=== PATIENT | female | born 1980 | race Caucasian/White ===

== ENCOUNTER 2024-05-22 11:09 | Outpatient (OUT) | payer OTHER, SELFPAY ==
--- NOTE | 2024-05-22 11:18 | MM_ITS ---
Patient Name: RONNY WILLARD MR#: [id number] : 1980 Exam Date: 05/22/2024 Ordering Doctor: MADALYN FARNSWORTH . RADIOLOGY REPORT PROCEDURE: MM TOMOSYNTHESIS SCREENING BI COMPARISON: None. INDICATIONS: Screening Calculator Name NCI Breast Cancer Risk Assessment Tool 5 Year Breast Cancer Risk 0.80% Lifetime Breast Cancer Risk 12.40% Personal Breast Cancer No Personal Ovarian Cancer No Treatments None Family Cancers None LOCATION: [facility] BREAST COMPOSITION: The breasts are extremely dense, which lowers the sensitivity of mammography. FINDINGS: DIAGNOSTIC CATEGORY 2--BENIGN FINDING: Scattered benign-appearing nodules are present. Scattered benign-appearing calcifications are present. Scattered benign-appearing lymph nodes are present. RIGHT BREAST: No significant suspicious finding. LEFT BREAST: No significant suspicious finding. RECOMMENDATIONS: ROUTINE MAMMOGRAM AND CLINICAL EVALUATION IN 12 MONTHS. PLEASE NOTE: A NORMAL MAMMOGRAM DOES NOT EXCLUDE THE POSSIBILITY OF BREAST CANCER. A CLINICALLY SUSPICIOUS PALPABLE LUMP SHOULD BE BIOPSIED. Dictated by: Dick Goyal MD on 05/22/2024 at 13:16 Approved by: Dick Goyal MD on 05/22/2024 at 13:17
== END 2024-05-22 11:10 | disposition home or self-care (01) ==
LOC: MAMMO 11:14
PROVIDERS: PCP Nurse Practitioner; Visit Provider Nurse Practitioner
DX: Z12.31 Encounter for screening mammogram for malignant neoplasm of breast (principal)
CPT/HCPCS: 77063; 77067

== ENCOUNTER 2025-05-28 13:14 | Outpatient (OUT) | payer OTHER, SELFPAY ==
--- NOTE | 2025-05-28 13:19 | MM_ITS ---
Patient Name: RONNY WILLARD MR#: [id number] : 1980 Exam Date: 05/28/2025 Ordering Doctor: MADALYN FARNSWORTH . RADIOLOGY REPORT PROCEDURE: MM TOMOSYNTHESIS SCREENING BI COMPARISON: MM TOMOSYNTHESIS SCREENING BI, 05/22/2024. INDICATIONS: Screening Calculator Name NCI Breast Cancer Risk Assessment Tool 5 Year Breast Cancer Risk 0.80% Lifetime Breast Cancer Risk 12.20% Personal Breast Cancer No Personal Ovarian Cancer No Treatments None Family Cancers None LOCATION: [facility] BREAST COMPOSITION: The breasts are extremely dense, which lowers the sensitivity of mammography. FINDINGS: RIGHT BREAST: No significant suspicious finding. There is a similar focal asymmetry. LEFT BREAST: No significant suspicious finding. There is a similar focal asymmetry. DIAGNOSTIC CATEGORY 2--BENIGN FINDING. NO CHANGE FROM COMPARISON. RECOMMENDATIONS: ROUTINE MAMMOGRAM AND CLINICAL EVALUATION IN 12 MONTHS. Dictated by: Fco Conrad MD on 05/28/2025 at 15:33 Approved by: Fco Conrad MD on 05/28/2025 at 15:37
--- OUTSIDE RECORDS SUMMARY | 2025-05-28 13:20 | XMS_ITS | CCD ---
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 Role Phone MICHELE CHURCH Primary Care Physician Blayne, Shae L Admitting Unavailable Blayne, Shae L Attending Unavailable RANJIT, MICHELE A Attending Unavailable RANJIT, MICHELE A Admitting Unavailable RANJIT, MICHELE A Attending Unavailable Blayne, HUMAN RESOURCES OPERATIONS DIRECTOR Shae L Attending Unavailable RANJIT, MICHELE A Attending Unavailable RANJIT, MICHELE A Attending Unavailable RANJIT, MICHELE A Admitting Unavailable RANJIT, MICHELE A Attending Unavailable RANJIT, MICHELE A Attending Unavailable RANJIT, MICHELE A Attending Unavailable RANJIT, MICHELE A Admitting Unavailable RANJIT, MICHELE A Attending Unavailable RANJIT, MICHELE A Attending Unavailable RANJIT, MICHELE A Admitting Unavailable RANJIT, MICHELE A Attending Unavailable RANJIT, MICHELE A Admitting Unavailable RANJIT, MICHELE A Attending Unavailable RANJIT, MICHELE A Attending Unavailable RANJIT, MICHELE A Attending Unavailable RANJIT, MICHELE A Attending Unavailable RANJIT, MICHELE A Attending Unavailable RANJIT, MICHELE A Admitting Unavailable RANJIT, MICHELE A Referring Unavailable RANJIT, MICHELE A Attending Unavailable Allergies Allergy Classification Reported Allergen(s) Allergy Type Date of Onset Reaction(s) Facility (4 sources) No Known Medication Allergies; Translations: [No Known Medication Allergies] Propensity to adverse reactions (disorder) [facility] Repository Medications Current Medications Medication Drug Class(es) Dates Sig (Normalized) Sig (Original) Aquaphor Healing topical ointment (2 sources) Start: 05-06-2024 Aquaphor Healing topical ointment See Instructions, 396 gm, Refill(s) 0, Apply to dry areas of the hands, elbows, and knees, [facility], 166, cm, 05/06/24 10:31:00 EDT, Height/Length Dosing, 65, kg, 05/06/24 10:31:00 EDT, Weight Dosing Start Date: 05/06/24 Status: Ordered Problems Problem Classification Problem Date Documented Da te Episodic/Chronic Headache; including migraine (2 sources) 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 Unclassified (4 sources) Body mass index 20-24 - normal 05-06-2024 Unclassified (3 sources) Cancer cervix screening status 05-20-2024 Unclassified (4 sources) Non-smoker 05-06-2024 Unclassified (6 sources) Patient encounter status 05-20-2024 Results Test Name Value Interpretation Reference Range Facility Chlamydia/Gonococcus, NAAon 03-19-2025 Chlamydia trach, YOVANI Negative Invalid Interpretation Code Negative [facility] Comment on above: Performed By: #### 1 [id number] #### [facility] [address] [place] [address] Neisseria jonathan, YOVANI Negative Invalid Interpretation Code Negative [facility] Comment on above: Result Comment: Perf ormed at: =G [facility] [address] [id number] MD Juan M Watkins Performed By: #### 1 [id number] #### [facility] [address] [place] [address] FSH and LHon 03-19-2025 FSH 8.2 mIU/mL Invalid Interpretation Code [facility] Comment on above: Result Comment: Adul t Female Range Follicular phase 3.5 - 12.5 Ovulation phase 4.7 - 21.5 Luteal phase 1.7 - 7.7 Postmenopausal 25.8 - 134.8 Performed at: [facility] [address] [id number] PhD Frank Pitt Performed By: #### 1 [id number] #### [facility] [address] [place] [address] LH 25.0 mIU/mL Invalid Interpretation Code [facility] Comment on above: Result Comment: Adul t Female Range Follicular phase 2.4 - 12.6 Ovulation phase 14.0 - 95.6 Luteal phase 1.0 - 11.4 Postmenopausal 7.7 - 58.5 Performed By: #### 1 [id number] #### [facility] [address] [place] [address] Glu Fastingon 03-17-2025 Glucose [Mass/Vol] 96 mg/dL Normal 55-99 [facility] Comment on above: Performed By: #### 2 [id number] #### [facility] [address] [place] [address] Lipid Panelon 03-17-2025 Cholesterol [Mass/Vol] 193 mg/dL Normal 120-200 [facility] Comment on above: Performed By: #### 2 [id number] #### [facility] [address] [place] [address] Cholesterol in HDL [Mass/Vol] 58 mg/dL Invalid Interpretation Code [facility] Comment on above: Result Comment: '>= 60 LOW RISK' '<= 40 HIGH RISK' Performed By: #### 2 [id number] #### [facility] [address] [place] [address] Cholesterol in LDL [Mass/Vol] 124 mg/dL Normal <=129 [facility] Comment on above: Performed By: #### 2 [id number] #### [facility] [address] [place] [address] Cholesterol in VLDL [Mass/Vol] 24 mg/dL Normal 7-40 [facility] Comment on above: Performed By: #### 2 [id number] #### [facility] [address] [place] [address] Triglyceride [Mass/Vol] 119 mg/dL Normal <=149 [facility] Comment on above: Performed By: #### 2 [id number] #### [facility] [address] [place] [address] Ambulatory Visit Summaryon 0 03-13-2025 Ambulatory Visit Summary Ambulatory Visit Summary ELI WILLARD :1980 Visit Date:03/13/2025 Ambulatory Visit Instructions Your Diagnosis Well woman exam Breast cancer screening by mammogram BMI 22.0-22.9, adult Former smoker Your Care Team Attending Physician - MICHELE CHURCH CNP Primary Care Physician - MICHELE CHURCH CNP Discharge Vitals Temperature (Oral) 36.8 ???C Heart Rate (Peripheral) 94 Respiratory Rate 18 Blood Pressure 114/76 Height 166 cm Height 65 in Weight 62.1 kg Weight 136.907 lb BMI 22.54 What to do next Scheduled Follow-Up Appointments Monday 9:20 AM EDT Where: [facility] [address] [place] [phone]- You Need to Schedule the Following Appointments Follow Up with MICHELE CHURCH CNP, FAM When: Within 1 year Comments: Well visit Where: [address] [place] [phone] Business (1) You Need to Complete the Following Chlamydia/Gonococcus , YOVANI, Urine, Routine collect, 03/13/25, Order for future visit, Nurse collect, Well woman exam Breast cancer screening by mammogram BMI 22.0-22.9, adult Former smoker, Print Label By Order Location FSH and LH, Blood, Routine collect, 03/13/25, Order for future visit, Lab Collect, Well woman exam, Print Label By Order Location Glucose Fasting, Blood, Routine collect, 03/13/25, Order for future visit, Lab Collect, Well woman exam, Print Label By Order Location Lipid Panel, Blood, Routine collect, 03/13/25, Order for future visit, Lab Collect, Well woman exam, Print Label By Order Location MA Mamm Screen w/CAD if perf and 3D Zcakary, 03/13/25, Routine, Order for Future Visit, Transport Mode: Ambulatory, Reason: Screening, No, Well woman exam Breast cancer screening by mammogram, pp_set_radiology_sub specialty, [facility] Allergies No Known Allergies No Known Medication Allergies Problems Ongoing - Any problem that you are currently receiving treatment for. BMI 22.0-22.9, adult Breast cancer screening by mammogram Cervical cancer screening Former smoker Ocular migraine Well woman exam Patient Survey You may receive a survey via text or e-mail asking about your office visit. Please share your experience with us by completing your survey. We appreciate your feedback and thank you for choosing us for your care. Education Materials Health Maintenance, Female Adopting a healthy lifestyle and getting preventive care are important in promoting health and wellness. Ask your health care provider about: ??? The right schedule for you to have regular tests and exams. ??? Things you can do on your own to prevent diseases and keep yourself healthy. What should I know about diet, weight, and exercise? Eat a healthy diet ??? Eat a diet that includes plenty of vegetables, fruits, low-fat dairy products, and lean protein. ??? Do not eat a lot of foods that are high in solid fats, added sugars, or sodium. Maintain a healthy weight Body mass index (BMI) is used to identify weight problems. It estimates body fat based on height and weight. Your health care provider can help determine your BMI and help you achieve or maintain a healthy weight. Get regular exercise Get regular exercise. This is one of the most important things you can do for your health. Most adults should: ??? Exercise for at least 150 minutes each week. The exercise should increase your heart rate and make you sweat (moderate-intensity exercise). ??? Do strengthening exercises at least twice a week. This is in addition to the moderate-intensity exercise. ??? Spend less time sitting. Even light physical activity can be beneficial. Watch cholesterol and blood lipids Have your blood tested for lipids and cholesterol at 20 years of age, then have this test every 5 years. Have your cholesterol levels checked more often if: ??? Your lipid or cholesterol levels are high. ??? You are older than 40 years of age. ??? You are at high risk for heart disease. What should I know about cancer screening? Depending on your health history and family history, you may need to have cancer screening at various ages. This may include screening for: ??? Breast cancer. ??? Cervical cancer. ??? Colorectal cancer. ??? Skin cancer. ??? Lung cancer. What should I know about heart disease, diabetes, and high blood pressure? Blood pressure and heart disease ??? High blood pressure causes heart disease and increases the risk of stroke. This is more likely to develop in people who have high blood pressure readings or are overweight. ??? Have your blood pressure checked: ? Every 3???5 years if you are 18???39 years of age. ? Every year if you are 40 years old or older. Diabetes Have regular diabetes screenings. This checks your fasting blood sugar level. (more content not included)... Normal [facility] Family Medicine Office/Clini c Noteon 03-13-2025 Family Medicine Office/Clinic Note Family Medicine Office/Clinic Note Chief Complaint Annual Wellness The patient presents for a routine wellness check and breast cancer screening. [facility] Staff Eli is a 44 year old female presenting for annual wellness visit Health Maintenance: Colonoscopy: NA Dexa: NA Mammo: 05/22/24 Pap: 05/20/24 Last Labs: December 02 2024 History of Present Illness 44-year-old female presenting with a wellness check and breast cancer screening. She has a history of Polycystic Ovary Syndrome (PCOS), which has affected her menstrual cycles, causing irregular periods that have now regulated to approximately every 32 days since having children. She reports experiencing menopausal symptoms, including episodes of sweating while indoors in air conditioning, which she describes as feeling as though she has just showered. The patient has a history of smoking but is now a former smoker. She is due for a fasting blood sugar test, which will be scheduled along with hormone tests to assess menopausal status. Review of Systems PHQ Score Initial Depression Screen Score: 0 SCORE Constitutional: no fever, no chills, no sweats, no weakness Skin: no Jaundice, no rash, no lesions, nopetechiae ENMT: no ear pain, no sore throat, no congestion, no hoarseness Respiratory: no shortness of breath, no cough, no orthopnea, no wheezing Cardiovascular: no chest pain, no palpitations, no edema Gastrointestinal: no nausea, no vomiting, no diarrhea, no GI bleeding Genitourinary: no dysuria, no hematuria, no discharge, no pain Musculoskeletal: no back pain, no trauma Neurologic: no headache, no dizziness, no numbness, no weakness Psychiatric: no sleeping problems, no irritability, no mood swings/depression. Heme/Lymph: no bleeding tendency, no bruising tendency, no petechiae, no swollen nodes Allergy/Immunologic: no seasonal allergies, no food allergies, no recurrent infections, no impaired immunity Additional ROS info: Except as noted in the above Review of Systems and in the History of Present Illness all other systems have been reviewed and are negative or noncontributory. Physical Exam Vitals & Measurements T: 36.8 ???C(Oral) HR: 94(Peripheral) RR: 18 BP: 114/76 SpO2: 97% HT: 65 in HT: 166 cm WT: 136.907 lb WT: 62.1 kg BMI: 22.54 General: alert, no acute distress Skin: warm, dry Head: no trauma, normocephalic Neck: Trachea midline, no adenopathy, no tenderness Eye: normal conjunctiva, sclera clear ENMT: TM's clear, oral mucosa moist, no pharyngeal erythema or exudate Cardiovascular: regular rate and rhythm, normal peripheral perfusion Respiratory: Lungs CTA, respirations non labored Chest wall: no deformity. Gastrointestinal: soft, non distended, no tenderness, no guarding. Back: No tenderness, Normal ROM, Normal alignment. Extremities: no deformity, no trauma Neurological: oriented x 4, LOC appropriate for age, CN II-XII intact, motor strength equal & normal bilaterally, sensation equal & normal bilaterally, speech normal Psychiatric: cooperative, affect appropriate for age, normal judgement, normal psychiatric thoughts. Assessment/Plan 1. Well woman exam (Z01.419: Encounter for gynecological examination (general) (routine) without abnormal findings) - Routine wellness check conducted, including physical examination and discussion of preventative care measures. Ordered: Chlamydia/Gonococcus , YOVANI FSH and LH Glucose Fasting Lipid Panel MA Mamm Screen w/CAD if perf and 3D Zackary 2. Breast cancer screening by mammogram (Z12.31: Encounter for screening mammogram for malignant neoplasm of breast) - Mammogram scheduled for May as part of routine annual screening. Ordered: Chlamydia/Gonococcus , YOVANI MA Mamm Screen w/CAD if perf and 3D Zackary 3. Menopausal symptom (N95.1: Menopausal and female climacteric states) - Reports episodes of sweating indoors, hormone tests to be scheduled to assess menopausal status. - Awaiting laboratory results 4. BMI 22.0-22.9, adult (Z68.22: Body mass index [BMI] 22.0-22.9, adult) BMI 22.54 Ordered: Chlamydia/Gonococcus , YOVANI 5. Former smoker (Z87.891: Personal history of nicotine dependence) - Acknowledged history of smoking, currently a former smoker. Ordered: Chlamydia/Gonococcus , YOVANI Orders: cetirizine, 10 mg = 1 tab(s), Oral, Daily, # 90 tab(s), Refills(s) 1, Pharmacy: [facility]/pharmacy #[id number], 166, cm, 01/16/25 8:49:00 EDT, Height/Length Dosing, 61.3, kg, 01/16/25 8:49:00 EDT, Weight Dosing Follow-up With When Contact Information MICHELE CHURCH CNP, FAM Within [address] [place] [phone] Business (1) Additional Instructions: Well visit Patient Education Health Maintenance, Female Problem List/Past Medical History Ongoing BMI 22.0-22.9, adult Breast cancer screening by mammogram Cervical cancer screening Former smoker Ocular migraine Well woman exam Historical No qualifying data Medications No activ (more content not included)... Normal [facility] Comment on above: Result Comment: Elec tronically Signed By: MICHELE CHURCH CNP\.br\Date and Time Signed: 03/13/25 10:02 EDT Ambulatory Visit Summaryon 0 01-16-2025 Ambulatory Visit Summary Ambulatory Visit Summary ELI WILLARD :1980 Visit Date:01/16/2025 Ambulatory Visit Instructions Your Diagnosis Ear pain, left Seasonal allergies Your Care Team Attending Physician - MICHELE CHURCH CNP Primary Care Physician - MICHELE CHURCH CNP This Is Your Medications List cetirizine (cetirizine 10 mg Tab) Discharge Vitals Temperature (Temporal Artery) 37.1 ???C Heart Rate (Peripheral) 88 Respiratory Rate 16 Blood Pressure 118/72 Height 166 cm Height 65 in Weight 61.3 kg Weight 135.143 lb BMI 22.25 What to do next Scheduled Follow-Up Appointments 2024 9:40 AM EDT With: MICHELE CHURCH CNP Where: [facility] [address] [place] [phone]- You Need to Schedule the Following Appointments Follow Up with MICHELE CHURCH CNP, FAM When: Within 3 months Comments: Well Adult Where: [address] [place] [phone] Business (1) Medications What How Much When Why Instructions New cetirizine (cetirizine 10 mg Tab) 1 Tablets By Mouth Every day Seasonal allergies Refills: 1 Pickup at [facility]pharmacy #[id number] [facility]/pharmacy #[id number]: [address] [place], [place] [phone] Allergies No Known Allergies No Known Medication Allergies Problems Ongoing - Any problem that you are currently receiving treatment for. Breast cancer screening by mammogram Cervical cancer screening Ocular migraine Well woman exam Patient Survey You may receive a survey via text or e-mail asking about your office visit. Please share your experience with us by completing your survey. We appreciate your feedback and thank you for choosing us for your care. Normal [facility] Family Medicine Office/Clini c Noteon 01-16-2025 Family Medicine Office/Clinic Note Family Medicine Office/Clinic Note Chief Complaint The patient presents for re-evaluation of ear pain and requests a refill of allergy medication. [facility] Staff Eli is a 44 year old female presenting with 2 week f/u ear Flonase and constant OTC antihistamine Referral to ENT if still having sx after abx Referral sent in neurology @ [facility] Pt states that she is no longer having pain, but feels numbness from L ear to L cheek. Ear no longer feels fluid filled but does not feel that hearing is back to normal. Would like refill on allergy medication. History of Present Illness 44-year-old female presenting for follow up of left ear pain. She reports left-sided ear pain, with numbness in the vicinity that remains unresolved despite a prior CT scan that showed no significant findings. The numbness has persisted and the feeling of fullness has resolved. The patient also has a history of seasonal allergies, for which she is currently managing with Zyrtec. This is her second allergy season in the area, and she is still acclimatizing to the local allergens. Review of Systems PHQ Score Initial Depression Screen Score: 2 SCORE - Ears: Reports left ear pain; denies any right ear issues. - Neurological: Reports numbness from a specific area; denies other neurological symptoms. - Allergies: Reports high seasonal allergies; requests refill for allergy medication. Physical Exam Vitals & Measurements T: 37.1 ???C(Temporal Artery) HR: 88(Peripheral) RR: 16 BP: 118/72 HT: 166 cm HT: 65 in WT: 61.3 kg WT: 135.143 lb BMI: 22.25 General: alert, no acute distress ENMT: TM's clear, oral mucosa moist, no pharyngeal erythema or exudate Cardiovascular: regular rate and rhythm, normal peripheral perfusion Respiratory: Lungs CTA, respirations non labored Extremities: no deformity, no trauma Neurological: oriented x 4, LOC appropriate for age speech normal Assessment/Plan 1. Ear pain, left (H92.02: Otalgia, left ear) - Continue monitoring symptoms with follow-up if needed. - Advise further evaluation by a neurologist due to persistent numbness. Ordered: amoxicillin, 500 mg = 1 cap(s), Oral, q12hr, # 20 cap(s), Refills(s) 0, Pharmacy: [facility]/pharmacy #[id number], 166, cm, 01/02/25 9:44:00 EDT, Height/Length Dosing, 62.8, kg, 01/02/25 9:44:00 EDT, Weight Dosing 2. Seasonal allergies (J30.2: Other seasonal allergic rhinitis) - Refill Zyrtec prescription. - Implement environmental control measures for allergy management. Ordered: cetirizine, 10 mg = 1 tab(s), Oral, Daily, # 90 tab(s), Refills(s) 1, Pharmacy: [facility]/pharmacy #[id number], 166, cm, 01/16/25 8:49:00 EDT, Height/Length Dosing, 61.3, kg, 01/16/25 8:49:00 EDT, Weight Dosing 3. Numbness of jaw (R20.0: Anesthesia of skin) - Referral to neurology for specialist assessment. - Monitor symptoms pending specialist evaluation. Follow-up With When Contact Information MICHELE CHURCH CNP, FAM Within [address] [place] [phone] Business (1) Additional Instructions: Well Adult Patient Education Allergic Rhinitis, Adult, [id number] Problem List/Past Medical History Ongoing Breast cancer screening by mammogram Cervical cancer screening Ocular migraine Well woman exam Historical No qualifying data Medications cetirizine 10 mg Tab, 10 mg= 1 tab(s), Oral, Daily, 1 refills Allergies No Known Allergies No Known Medication Allergies Social History Alcohol Past, Liquor, Daily, 11/26/2024 Substance Abuse Never., 12/02/2024 Never., 11/18/2024 Tobacco Former smoker, quit more than 30 days ago, quit 20 years ago Tobacco Use:. Household tobacco concerns: No., 01/16/2025 Family History Family history is negative Normal [facility] Comment on above: Result Comment: Elec tronically Signed By: MICHELE CHURCH CNP\.br\Date and Time Signed: 01/16/25 09:03 EDT Ambulatory Visit Summaryon 0 01-02-2025 Ambulatory Visit Summary Ambulatory Visit Summary ELI WILLARD :1980 Visit Date:01/02/2025 Ambulatory Visit Instructions Your Diagnosis Left ear pain Nonspecific dizziness Former smoker Your Care Team Attending Physician - MICHELE CHURCH CNP Primary Care Physician - MICHELE CHURCH CNP This Is Your Medications List amoxicillin (amoxicillin 500 mg Cap) loratadine-pseudoeph edrine (Loratadine-D 12 Hour oral tablet, extended release) Discharge Vitals Temperature (Oral) 36.5 ???C Heart Rate (Peripheral) 88 Respiratory Rate 20 Blood Pressure 108/64 Height 166.0 cm Height 65 in Weight 62.8 kg Weight 138.45 lb BMI 22.79 What to do next Scheduled Follow-Up Appointments 2024 8:40 AM EDT With: MICHELE CHURCH CNP Where: [facility] [address] [place] [phone]- You Need to Schedule the Following Appointments Follow Up with MICHELE CHURCH CNP [facility] When: Within 2 weeks Comments: Left ear pain Where: [address] [place] [phone] Business (1) Medications What How Much When Why Instructions New loratadine-pseudoeph edrine (Loratadine-D 12 Hour oral tablet, extended release) 1 Tablets By Mouth Every 12 hours Left ear pain Duration: [address] [facility]/pharmacy #[id number] Unchanged amoxicillin (amoxicillin 500 mg Cap) 1 Capsules By Mouth Every 12 hours Ear pain, left Pickup at [facility]/pharmacy #[id number] [facility]/pharmacy #[id number]: [address] [place], [place] [phone] Allergies No Known Medication Allergies Problems Ongoing - Any problem that you are currently receiving treatment for. Breast cancer screening by mammogram Cervical cancer screening Ocular migraine Well woman exam Patient Survey You may receive a survey via text or e-mail asking about your office visit. Please share your experience with us by completing your survey. We appreciate your feedback and thank you for choosing us for your care. Education Materials Earache, Adult An earache, or ear pain, can be caused by many things, including: ??? An infection. ??? Ear wax buildup. ??? Ear pressure. ??? Something in the ear that should not be there (foreign body). ??? A sore throat. ??? Tooth problems. ??? Jaw problems. Treatment of the earache will depend on the cause. If the cause is not clear or cannot be known, you may need to watch your symptoms until your earache goes away or until a cause is found. Follow these instructions at home: Medicines ??? Take or apply [id number] and prescription medicines only as told by your health care provider. ??? If you were prescribed antibiotics, use them as told by your health care provider. Do not stop using the antibiotic even if you start to feel better. ??? Do not put anything in your ear other than medicine that is prescribed by your health care provider. Managing pain If directed, apply heat to the affected area as often as told by your health care provider. Use the heat source that your health care provider recommends, such as a moist heat pack or a heating pad. ??? Place a towel between your skin and the heat source. ??? Leave the heat on for 20???30 minutes. ??? If your skin turns bright red, remove the heat right away to prevent donato. The risk of donato is higher if you cannot feel pain, heat, or cold. If directed, put ice on the affected area. To do this: ??? Put ice in a plastic bag. ??? Place a towel between your skin and the bag. ??? Leave the ice on for 20 minutes, 2???3 times a day. ??? If your skin turns bright red, remove the ice right away to prevent skin damage. The risk of skin damage is higher if you cannot feel pain, heat, or cold. General instructions ??? Pay attention to any changes in your symptoms. ??? Try resting in an upright position instead of lying down. This may help to reduce pressure in your ear and relieve pain. ??? Chew gum if it helps to relieve your ear pain. ??? Treat any allergies as told by your health care provider. ??? Drink enough fluid to keep your urine pale yellow. ??? It is up to you to get the results of any tests that were done. Ask your health care provider, or the department that is doing the tests, when your results will be ready. Contact a health care provider if: ??? Your pain does not improve within 2 days. ??? Your earache gets worse. ??? You have new symptoms. ??? You have a fever. Get help right away if: ??? You have a severe headache. ??? You have a stiff neck. ??? You have trouble swallowing. ??? You have redness or swelling behind your ear. ??? You have fluid or blood coming from your ear. ??? You have hearing loss. ??? You feel dizzy. This information is not intended to replace (more content not included)... Normal [facility] Family Medicine Office/Clini c Noteon 01-02-2025 Family Medicine Office/Clinic Note Family Medicine Office/Clinic Note Chief Complaint The patient presents with severe left ear pain and impaired hearing. HPI Staff Eli is a 44 year old female presenting with left ear pain/ she think she might of ruptured her ear drum... she can not hear out of it it is echoing JUAN Dec 27 2024 she was here for left ear pain was tx'd with amoxicillin 500 mg BID for 10 days ... she is on day 7 for this History of Present Illness 44-year-old female presenting with left ear pain and associated auditory symptoms. The pain onset coincided with a previous visit on December 27 and was noted to have been severe initially. The patient experienced serous and then purulent discharge along with impaired hearing subsequent to the pain onset. There is reported facial numbness and tingling since onset, focused on the affected side. Approximately seven days post-onset, the patient reported auditory distortions, described as high-pitched echoes and altered sound perception, particularly when exposed to music. Periodic dizziness has been observed historically, but no additional compelling history for these episodes was recalled. Review of Systems PHQ Score Initial Depression Screen Score: 2 SCORE - Ear/Nose/Throat: Reports left ear pain, impaired hearing, purulent discharge. - Neurological: Reports of left-sided facial tingling and numbness, and dizziness. - Musculoskeletal: Denies additional symptoms. Physical Exam Vitals & Measurements T: 36.5 ???C(Oral) HR: 88(Peripheral) RR: 20 BP: 108/64 SpO2: 100% HT: 65 in HT: 166.0 cm WT: 62.8 kg WT: 138.45 lb BMI: 22.79 General: alert, no acute distress ENMT: TM's not clear & erythematous on the left, oral mucosa moist, no pharyngeal erythema or exudate Cardiovascular: regular rate and rhythm, normal peripheral perfusion Respiratory: Lungs CTA, respirations non labored Extremities: no deformity, no trauma Neurological: oriented x 4, LOC appropriate for age speech normal Assessment/Plan 1. Left ear pain (H92.02: Otalgia, left ear) - Completion of remaining antibiotics with potential for extended course. - Flonase and consistent OTC antihistamine use recommended. - Referral to ENT if prolonged symptoms occur post-antibiotics. - Discussion on potential benefits of decongestants. - f/u in 2 weeks Ordered: amoxicillin, 500 mg = 1 cap(s), Oral, q12hr, # 20 cap(s), Refills(s) 0, Pharmacy: [facility]/pharmacy #[id number], 166, cm, 01/02/25 9:44:00 EDT, Height/Length Dosing, 62.8, kg, 01/02/25 9:44:00 EDT, Weight Dosing loratadine-pseudoeph edrine, 1 tab(s), Oral, q12hr for 10 day(s), 20 tab(s), Refill(s) 0, [facility]acy [id number], 166, cm, 01/02/25 9:44:00 EDT, Height/Length Dosing, 62.8, kg, 01/02/25 9:44:00 EDT, Weight Dosing 2. Nonspecific dizziness (R42: Dizziness and giddiness) - Possible neurological referral if symptoms overlap. - Monitoring advised for any progression of tingling or hearing anomalies. [place] [facility] [place] Ambulatory Referral 3. Former smoker (Z87.891: Personal history of nicotine dependence) Encouraged to continue as a non-smoker Follow-up With When Contact Information MICHELE CHURCH CNP, JULIENNE Within 2 weeks [address] [place] [address] Business (1) Additional Instructions: Left ear pain Patient Education Earache, Adult Problem List/Past Medical History Ongoing Breast cancer screening by mammogram Cervical cancer screening Ocular migraine Well woman exam Historical No qualifying data Medications amoxicillin 500 mg Cap, 500 mg= 1 cap(s), Oral, q12hr Loratadine-D 12 Hour oral tablet, extended release, 1 tab(s), Oral, q12hr Allergies No Known Medication Allergies Social History Alcohol Past, Liquor, Daily, 11/26/2024 Substance Abuse Never., 12/02/2024 Never., 11/18/2024 Tobacco Former smoker, quit more than 30 days ago, quit 20 years ago Tobacco Use:., 01/02/2025 Family History Family history is negative Normal [facility] Comment on above: Result Comment: Elec tronically Signed By: MICHELE CHURCH CNP\.br\Date and Time Signed: 01/02/25 10:13 EDT Family Medicine Office/Clini c Noteon 12-27-2024 Family Medicine Office/Clinic Note Family Medicine Office/Clinic Note Chief Complaint Severe ear pain in the left ear and associated hearing loss. HPI Staff Eli is a 44 year old female presenting with left ear pain Onset: started last Monday Fevers: NO Sinus congestion: YES Sneezing: NO Ear pain: LEFT Ear itching, popping, fullness, ringing, muffled hearing: POPPING, MUFFLED Ear drainage: NO Swollen nodes: Sore throat: 3 DAYS AGO IT WAS Ear pain worse with chewing: YES Itching: NO Difficulty hearing: YES Tried: COLD MEDICINE, IBIPROFEN DID SEEM TO HELP LOSEN IT SHE HAS NOT BEEN ABLE TO TASTE OR SMELL FOR 5 DAYS TOOK COVID TEST ON MONDAY THIS WAS NEG I have reviewed and verified the staff HPI to be accurate for this encounter. History of Present Illness 44-year-old female presenting with left ear pain. She reported that the issue started over the previous weekend with a sinus infection, leading to anosmia and ageusia. She experienced transient improvement, but subsequently developed severe otalgia in the left ear today, along with associated hearing loss. The pain was described as extreme and not alleviated by wtzw-nhd-rqlzxbj medications. The patient performed a COVID-19 test recently which returned negative results. She reports no known drug allergies and notes the ability to tolerate amoxicillin in the past. Review of Systems PHQ Score Initial Depression Screen Score: 2 SCORE - ENT: Reports severe left ear pain, hearing loss, and recent anosmia and ageusia. - Respiratory: Denies symptoms. - Neurological: Denies symptoms. - Allergic/Immunologic al: Denies known medication allergies. Physical Exam Vitals & Measurements T: 36.3 ???C(Oral) HR: 112(Peripheral) RR: 20 BP: 98/64 SpO2: 98% HT: 166.0 cm HT: 65 in WT: 62.0 kg WT: 136.686 lb BMI: 22.5 General: alert, no acute distress ENMT: left TM's not clear & erythematous, oral mucosa moist, yes pharyngeal erythema or exudate Cardiovascular: regular rate and rhythm, normal peripheral perfusion Respiratory: Lungs CTA, respirations non labored Extremities: no deformity, no trauma Neurological: oriented x 4, LOC appropriate for age speech normal Assessment/Plan 1. Ear pain, left (H92.02: Otalgia, left ear) - Prescribed amoxicillin 500 mg PO BID for 10 days. - Advised to complete the full course of antibiotics even after symptoms improve. Ordered: amoxicillin, 500 mg = 1 cap(s), Oral, q12hr, # 20 cap(s), Refills(s) 0, Pharmacy: [facility]/pharmacy #[id number], 166, cm, 12/27/24 10:43:00 EDT, Height/Length Dosing, 62, kg, 12/27/24 10:43:00 EDT, Weight Dosing 2. Former smoker (Z87.891: Personal history of nicotine dependence) - Recognized history of smoking with no active issues noted. 3. BMI 22.0-22.9, adult (Z68.22: Body mass index [BMI] 22.0-22.9, adult) - BMI 22.5 - No specific intervention required at present. Follow-up No qualifying data available Patient Education Ear Drops, Adult, Enrx-ab-Rvos Problem List/Past Medical History Ongoing BMI 23.0-23.9, adult Breast cancer screening by mammogram Cervical cancer screening Nonsmoker Ocular migraine Well woman exam Historical No qualifying data Medications amoxicillin 500 mg Cap, 500 mg= 1 cap(s), Oral, q12hr Allergies No Known Medication Allergies Social History Alcohol Past, Liquor, Daily, 11/26/2024 Substance Abuse Never., 12/02/2024 Never., 11/18/2024 Tobacco Former smoker, quit more than 30 days ago, quit 20 years ago Tobacco Use:., 12/27/2024 Family History Family history is negative Normal [facility] Comment on above: Result Comment: Elec tronically Signed By: MICHELE CHURCH CNP\.br\Date and Time Signed: 12/27/24 11:[address] Head or Brain w/o Contras ton 12-20-2024 CT Head or Brain w/o Contrast Exam Date/Time: 12/20/2024 10:17 EDT Reason for Exam: R42;Other (please specify) Report Impression: No acute intracranial process. CT Brain. Contrast medium: without contrast.. History: pt states had an episode about one month ago where she had dizziness, right eye pain. since she has had headaches, dizziness, feels like she cant think as well. no injury, no ca hx.. Technical factors: CT imaging of the brain was obtained and formatted as 5 mm contiguous axial images. 2.5 mm contiguous axial images were obtained through the osseous structures. Sagittal and coronal reconstruction obtained during postprocessing. Comparison: None. Findings: Extra-axial spaces: Normal. Intracranial hemorrhage: None. Ventricular system: Without anomaly. Basal Cisterns: Normal. Cerebral Parenchyma: Without anomaly. Midline Shift: None. Cerebellum: Normal. Paranasal sinuses and mastoid air cells: Normal. Visualized Orbits: Normal. All CT scans at this facility use dose modulation, iterative reconstruction, and/or weight based dosing when appropriate to reduce radiation dose to as low as reasonably achievable. Report Technical Comments: Ordering Provider: MICHELE CHURCH FINAL REPORT Dictated: 12/20/2024 10:48 am Signer Alexis GUEVARA Signed (Electronic Signature): 12/20/2024 10:48 am Signed by: Alexis Ross MD Transcribed by: ZECHARIAH Technologist: Normal [facility] CBC w/ Auto Diffon Basophils/100 WBC (Bld) 1.5 % Normal 0.0-2.0 [facility] Comment on above: Performed By: #### 2 [id number] ####[address] [address] Basophils/Leukocytes Auto (Bld) [Pure # fraction] 0.1 E9/L Normal 0.0-0.2 [facility] Comment on above: Performed By: #### 2 [id number] ####[address] [address] Eosinophils (Bld) [#/Vol] 0.3 E9/L Normal 0.0-0.5 [facility] Comment on above: Performed By: #### 2 [id number] ####[address] [address] Eosinophils/100 WBC (Bld) 3.9 % Normal 0.0-8.0 [facility] Comment on above: Performed By: #### 2 [id number] ####[address] [address] Erythrocyte distribution width (RBC) [Ratio] 14.3 % High 10.9-14.2 [facility] Comment on above: Performed By: #### 2 [id number] ####[address] [address] Hematocrit (Bld) [Volume fraction] 41.3 % Normal 34.0-46.0 [facility] Comment on above: Performed By: #### 2 [id number] ####[address] [address] Hemoglobin (Bld) [Mass/Vol] 14.0 g/dL Normal 12.0-16.0 [facility] Comment on above: Performed By: #### 2 [id number] ####[address] [address] Lymphocytes (Bld) [#/Vol] 2.2 E9/L Normal 1.0-4.0 [facility] Comment on above: Performed By: #### 2 155447 ####[address] [address] Lymphocytes/100 WBC (Bld) 33.0 % Normal 14.0-50.0 [facility] Comment on above: Performed By: #### 2 145090 ####[address] [address] MCH (RBC) [Entitic mass] 31.0 pg Normal 27.0-34.0 [facility] Comment on above: Performed By: #### 2 783457 ####[address] [address] MCHC (RBC) [Mass/Vol] 33.8 g/dL Normal 31.4-36.0 [facility] Comment on above: Performed By: #### 2 996229 ####[address] [address] MCV (RBC) [Entitic vol] 91.6 fL Normal 80.0-100.0 [facility] Comment on above: Performed By: #### 2 497927 ####[address] [address] Monocytes (Bld) [#/Vol] 0.3 E9/L Normal 0.2-1.0 [facility] Comment on above: Performed By: #### 2 829378 ####[address] [address] Neutrophils (Bld) [#/Vol] 3.8 E9/L Normal 2.0-7.5 [facility] Comment on above: Performed By: #### 2 005584 ####[address] [address] Neutrophils/100 WBC (Bld) 57.4 % Normal 36.0-75.0 [facility] Comment on above: Performed By: #### 2 082337 ####[facility] [address] [place] [address] Platelet 213.0 E9/L Normal 150.0-500.0 [facility] Comment on above: Performed By: #### 2 711131 ####[facility] [address] [place] [address] Platelet mean volume (Bld) [Entitic vol] 9.7 fL Normal 6.4-10.8 [facility] Comment on above: Performed By: #### 2 474158 ####[facility] [address] [place] [address] RBC (Bld) [#/Vol] 4.5 E12/L Normal 4.3-5.9 [facility] Comment on above: Performed By: #### 2 938673 ####[facility] [address] [place] [address] WBC corrected for nucl RBC Auto (Bld) [#/Vol] 6.5 E9/L Normal 4.0-11.0 [facility] Comment on above: Result Comment: Tonya pheral smear review performed. Performed By: #### 2 941536 ####[facility] [address] [place] [address] CMPon 12-03-2024 Albumin [Mass/Vol] 4.4 g/dL Normal 3.3-5.0 [facility] Comment on above: Performed By: #### 2 395412 #### [facility] [address] [place] [address] Albumin/Globulin (S) [Mass conc ratio] 1.9 Normal 1.1-2.2 [facility] Comment on above: Performed By: #### 2 287064 #### [facility] [address] [place] [address] ALP [Catalytic activity/Vol] 58 Int._Unit/L Normal 21-98 [facility] Comment on above: Performed By: #### 2 615534 #### [facility] [address] [place] [address] ALT No additional P-5'-P [Catalytic activity/Vol] 12 Int._Unit/L Normal 6-46 [facility] Comment on above: Performed By: #### 2 [id number] #### [facility] [address] [place] [address] Anion gap [Moles/Vol] 9 mmol/L Normal 6-16 [facility] Comment on above: Performed By: #### 2 701492 #### [facility] [address] [place] [address] AST [Catalytic activity/Vol] 18 Int._Unit/L Normal 5-43 [facility] Comment on above: Performed By: #### 2 551617 #### [facility] [address] [place] [address] Bilirubin [Mass/Vol] 0.7 mg/dL Normal 0.0-1.1 [facility] Comment on above: Performed By: #### 2 124232 #### [facility] [address] [place] [address] Calcium [Mass/Vol] 9.1 mg/dL Normal 8.9-11.1 [facility] Comment on above: Performed By: #### 2 271814 #### [facility] [address] [place] [address] Chloride [Moles/Vol] 105 mmol/L Normal 101-111 [facility] Comment on above: Performed By: #### 2 [id number] #### [facility] [address] [place] [address] CO2 [Moles/Vol] 29 mmol/L Normal 21-31 [facility] Comment on above: Performed By: #### 2 382133 #### [facility] [address] [place] [address] Creatinine [Mass/Vol] 0.7 mg/dL Normal 0.5-1.3 [facility] Comment on above: Performed By: #### 2 304887 #### [facility] [address] [place] [address] Globulin (S) [Mass/Vol] 2.3 g/dL Normal 1.4-4.0 [facility] Comment on above: Performed By: #### 2 741394 #### [facility] [address] [place] [address] Glucose [Mass/Vol] 109 mg/dL Normal 55-199 [facility] Comment on above: Performed By: #### 2 862759 #### [facility] [address] [place] [address] Potassium [Moles/Vol] 4.1 mmol/L Normal 3.5-5.3 [facility] Comment on above: Performed By: #### 2 674688 #### [facility] [address] [place] [address] Protein [Mass/Vol] 6.7 g/dL Normal 6.0-7.8 [facility] Comment on above: Performed By: #### 2 793839 #### [facility] [address] [place] [address] Sodium [Moles/Vol] 139 mmol/L Normal 135-145 [facility] Comment on above: Performed By: #### 2 545016 #### [facility] [address] [place] [address] Urea nitrogen [Mass/Vol] 11 mg/dL Normal 5-21 [facility] Comment on above: Performed By: #### 2 311903 #### [facility] [address] [place] [address] Urea nitrogen/Creatinine [Mass ratio] 16 No Units Normal 10-20 [facility] Comment on above: Performed By: #### 2 353735 #### [facility] [address] [place] [address] CRPon 12-03-2024 CRP [Mass/Vol] mg/L Normal <=1.9 [facility] Comment on above: Performed By: #### 2 606821 #### [facility] [address] [place] [address] TSH With T4fr Reflexon 04-15 -2025 TSH Qn 1.05 m[IU]/L Normal 0.34-5.60 [facility] Comment on above: Performed By: #### 1 [id number] #### [facility] [address] [place] [address] eGFRon 12-03-2024 eGFR 111 mL/min/1.73 m2 Normal >=59 [facility] Comment on above: Performed By: #### 1 [id number] #### [facility] [address] [place] [address] Ambulatory Visit Summaryon 0 12-02-2024 Ambulatory Visit Summary Ambulatory Visit Summary ELI WILLARD :1980 Visit Date:12/02/2024 Ambulatory Visit Instructions Your Diagnosis Dizziness Changes in vision Former smoker BMI 23.0-23.9, adult Your Care Team Attending Physician - MICHELE CHURCH CNP Primary Care Physician - MICHELE CHURCH CNP Discharge Vitals Temperature (Oral) 36.3 ???C Heart Rate (Peripheral) 94 Respiratory Rate 18 Blood Pressure 114/64 Height 166.0 cm Height 65 in Weight 63.7 kg Weight 140.434 lb BMI 23.12 What to do next You Need to Complete the Following CT Head or Brain w/o Contrast, 12/02/24, Routine, Order for future visit, Transport Mode: Ambulatory, Reason: Other (please specify), No, No, Dizziness Changes in vision, pp_set_radiology_sub specialty, Sharon Margarito Amari Allergies No Known Medication Allergies Problems Ongoing - Any problem that you are currently receiving treatment for. BMI 23.0-23.9, adult Breast cancer screening by mammogram Cervical cancer screening Nonsmoker Ocular migraine Well woman exam Patient Survey You may receive a survey via text or e-mail asking about your office visit. Please share your experience with us by completing your survey. We appreciate your feedback and thank you for choosing us for your care. Education Materials Dizziness Dizziness is a common problem. It makes you feel unsteady or light-headed. You may feel like you are about to pass out (faint). Dizziness can lead to getting hurt if you stumble or fall. Dizziness can be caused by many things, including: ??? Medicines. ??? Not having enough water in your body (dehydration). ??? Illness. Follow these instructions at home: Eating and drinking ??? Drink enough fluid to keep your pee (urine) pale yellow. This helps to keep you from getting dehydrated. Try to drink more clear fluids, such as water. ??? Do not drink alcohol. ??? Limit how much caffeine you drink or eat, if your doctor tells you to do that. ??? Limit how much salt (sodium) you drink or eat, if your doctor tells you to do that. Activity ??? Avoid making quick movements. ? Stand up slowly from sitting in a chair, and steady yourself until you feel okay. ? In the morning, first sit up on the side of the bed. When you feel okay, stand up slowly while you hold onto something. Do this until you know that your balance is okay. ??? If you need to panel edge painter one place for a long time, move your legs often. Tighten and relax the muscles in your legs while you are standing. ??? Do not drive or use machinery if you feel dizzy. ??? Avoid bending down if you feel dizzy. Place items in your home so you can reach them easily without leaning over. Lifestyle ??? Do not smoke or use any products that contain nicotine or tobacco. If you need help quitting, ask your doctor. ??? Try to lower your stress level. You can do this by using methods such as yoga or meditation. Talk with your doctor if you need help. General instructions ??? Watch your dizziness for any changes. ??? Take sejj-jwg-lmdutuy and prescription medicines only as told by your doctor. Talk with your doctor if you think that you are dizzy because of a medicine that you are taking. ??? Tell a friend or a family member that you are feeling dizzy. If he or she notices any changes in your behavior, have this person call your doctor. ??? Keep all follow-up visits. Contact a doctor if: ??? Your dizziness does not go away. ??? Your dizziness or light-headedness gets worse. ??? You feel like you may vomit (are nauseous). ??? You have trouble hearing. ??? You have new symptoms. ??? You are unsteady on your feet. ??? You feel like the room is spinning. ??? You have neck pain or a stiff neck. ??? You have a fever. Get help right away if: ??? You vomit or have watery poop (diarrhea), and you cannot eat or drink anything. ??? You have trouble: ? Talking. ? Walking. ? Swallowing. ? Using your arms, hands, or legs. ??? You feel generally weak. ??? You are not thinking clearly, or you have trouble forming sentences. A friend or family member may notice this. ??? You have: ? Chest pain. ? Pain in your belly (abdomen). ? Shortness of breath. ? Sweating. ??? Your vision changes. ??? You are bleeding. ??? You have a very bad headache. These symptoms may be an emergency. Get help right away. Call your local emergency services (911 in the [place] ??? Do not wait to see if the symptoms will go away. ??? Do not drive yourself to the hospital. Summary ??? Dizziness makes you feel unsteady or light-headed. You may feel like you are about to pass out (faint). ??? Drink enough fluid to keep your pee (urine) pale yellow. Do not drink alcohol. ??? Avoid making quick movements if you feel dizzy. ?? (more content not included)... Normal [facility] Family Medicine Office/Clini c Noteon 12-02-2024 Family Medicine Office/Clinic Note Family Medicine Office/Clinic Note Chief Complaint The patient presents with vision changes and dizziness persisting over a month, impacting daily activities. HPI Staff Eli is a 44 year old female presenting with 2 week f/u for vision changes went to [facility] on 11-27-24 Nothing has changed for her, she said it feels like it is fading but it is still there Sulfur burps are gone, she finished omeprazole yesterday History of Present Illness 44-year-old female presenting with visual disturbances paired with dizziness. The symptoms have persisted for approximately a month, with vision changes attributed to ocular migraines related to stress. She feels particularly affected by moving visuals, leading to a sensation described as spinning. Dizziness has slightly abated, but concerns remain. Exploration of these symptoms has led to discussions around her family history, where both grandmothers showed dementia signs in their seventies. The patient feels it necessary to undergo lab work and a brain scan to explore the potential for broader concerns given familial health patterns. Aside from vision and dizziness concerns, the patient is experiencing dry, cracking hands with mild improvements upon applying Aquaphor cream. Review of Systems PHQ Score Initial Depression Screen Score: 2 SCORE - Neurological: Reports dizziness, particularly associated with watching movement or TV. - Ophthalmologic: Reports changes in vision, aggravated by moving visual stimuli. - Dermatologic: Reports dryness and cracking of the hands. - Metabolic/ Nutritional: Denies current difficulties managing BMI-related issues. - Gastrointestinal: Denies current issues after receiving omeprazole for sulfur burps. Physical Exam Vitals & Measurements T: 36.3 ???C(Oral) HR: 94(Peripheral) RR: 18 BP: 114/64 SpO2: 98% HT: 65 in HT: 166.0 cm WT: 63.7 kg WT: 140.434 lb BMI: 23.12 General: alert, no acute distress Skin: warm, dry Head: no trauma, normocephalic Neck: Trachea midline, no adenopathy, no tenderness Eye: normal conjunctiva, sclera clear Cardiovascular: regular rate and rhythm, normal peripheral perfusion Respiratory: Lungs CTA, respirations non labored Neurological: oriented x 4, LOC appropriate for age, CN II-XII intact, motor strength equal & normal bilaterally, sensation equal & normal bilaterally, speech normal Assessment/Plan 1. Dizziness (R42: Dizziness and giddiness) - Conduct lab work to evaluate metabolic concerns. - Awaiting laboratory results & CT results - Will refer to neurology pending results Ordered: C-Reactive Protein CBC w/ Auto Diff Comprehensive Metabolic Panel CT Head or Brain w/o Contrast Lab Specimen Collect [id number] With T4fr Reflex 2. Changes in vision (H53.9: Unspecified visual disturbance) - Reviewed report from Dr. Cramer - Schedule a CT scan to investigate potential neurological involvement. - Discuss stress management strategies. Ordered: C-Reactive Protein CBC w/ Auto Diff Comprehensive Metabolic Panel CT Head or Brain w/o Contrast Lab Specimen Collect [id number] With T4fr Reflex 3. Former smoker (Z87.891: Personal history of nicotine dependence) - Continue to encourage a smoke-free lifestyle. Follow-up No qualifying data available Patient Education Dizziness, Kdjp-pn-Mpey Problem List/Past Medical History Ongoing BMI 23.0-23.9, adult Breast cancer screening by mammogram Cervical cancer screening Nonsmoker Ocular migraine Well woman exam Historical No qualifying data Medications No active medications Allergies No Known Medication Allergies Social History Alcohol Past, Liquor, Daily, 11/26/2024 Substance Abuse Never., 12/02/2024 Never., 11/18/2024 Tobacco Former smoker, quit more than 30 days ago, quit 20 years ago Tobacco Use:., 12/02/2024 Family History Family history is negative Normal [facility] Comment on above: Result Comment: Elec tronically Signed By: MICHELE CHURCH CNP\.br\Date and Time Signed: 12/02/24 15:03 EDT Family Medicine Office/Clini c Noteon 11-26-2024 Family Medicine Office/Clinic Note Family Medicine Office/Clinic Note Chief Complaint The patient presents with dizziness and associated visual disturbances. HPI Staff Eli is a 44 year old female presenting with being light headed, dizzy, vision changed Last eye exam 4 years ago Glucose checked today IO- 91 Onset: for a month now Her eyes hurts, she closes her, right eye she said feels like it always wants to close walking too fast or moving too fast she gets light headed Night time seems worse... scrolling on TV or phone this gets worse... if she moves too I have reviewed and verified the staff HPI to be accurate for this encounter. History of Present Illness 44-year-old female presenting with dizziness as the primary concern. The dizziness began one month ago and is described as a spinning sensation without alcohol involvement. The condition seems to worsen with visual stimuli such as phone usage or television, prompting compensatory behaviors like closing one eye. The patient also experiences reduced visual clarity at a distance, attributed to myopia for which corrective glasses are used. She reports she has not been wearing her glasses. Her last eye exam was 4 years ago. She denies headaches. Factors alleviating dizziness include resting in a dark, quiet environment without engaging in cognitively demanding activities. She relays she has been experiencing increased stress at home related to her 's health issues. She has noted a consistent pattern in her dizziness and accompanying visual disturbances with stress. She consumes substantial amounts of caffeinated beverages, specifically Diet Mountain Dew, and is aware that dehydration from caffeine and inadequate water intake could be factors. Additionally, there are sporadic auditory symptoms such as ringing and pressure in the ears, occurring infrequently. Her blood pressure is normal at 118/80. The patient is near the end of an antibiotic regimen for a prior H. pylori infection, reporting an improvement in GI symptoms such as sulfur burps. Review of Systems PHQ Score Initial Depression Screen Score: 1 SCORE - EENT: Reports occasional ringing and sensation of fullness in the ears. - Respiratory: Denies shortness of breath. - Cardiovascular: Reports right-sided chest pain occasionally, denies palpitations. - Neurological: Reports dizziness with altered vision, denies headaches or migraine. - Gastrointestinal: Reports previous H. pylori infection. - Psychological: Reports stress due to spouse's health issues. Physical Exam Vitals & Measurements T: 36.1 ???C(Oral) HR: 94(Peripheral) RR: 20 BP: 118/80 SpO2: 97% HT: 166.0 cm HT: 65 in WT: 63.8 kg WT: 140.655 lb BMI: 23.15 General: alert, no acute distress Skin: warm, dry Head: no trauma, normocephalic Neck: Trachea midline, no adenopathy, no tenderness Eye: normal conjunctiva, sclera clear Ear: Normal tympanic membrane, no cerumen, no erythema Cardiovascular: regular rate and rhythm, normal peripheral perfusion Respiratory: Lungs CTA, respirations non labored Neurological:Tex-Artemio lpike maneuver induced small vision changes; mild dizziness on positional change Psychiatric: cooperative, affect appropriate for age, normal judgement, normal psychiatric thoughts. Assessment/Plan 1. Dizziness, (R42: Dizziness and giddiness)Dizziness - Advise increased water intake to counteract dehydration from caffeine use. - Monitor and evaluate ear symptoms for potential vestibular disorders. - Suggest modification of lifestyle factors contributing to stress, with a focus on relaxation techniques. - Recommend eye exam- vision screen in the office today necessitates further evaluation - Potential further testing if dizziness persists - f/u after seen by coding quality analyst Ordered: Random Blood Glucose POC [id number] 2. BMI 23.0-23.9, adult (Z68.23: Body mass index [BMI] 23.0-23.9, adult) - Continued monitoring without additional interventions at this time. 3. Marijuana user, (F12.90: Cannabis use, unspecified, uncomplicated)Lynette santos user - Discuss potential connection and effects of marijuana use on dizziness. - Consider reduction of use based on symptomatic observations. Total time spent preparing the chart, conducting of the encounter with the patient and family and time spent documenting, reviewing, and ordering tests was 25 minutes. Follow-up No qualifying data available Patient Education Dizziness, Kzeu-cj-Rirq Problem List/Past Medical History Ongoing BMI 23.0-23.9, adult Breast cancer screening by mammogram Cervical cancer screening Nonsmoker Well woman exam Historical No qualifying data Medications omeprazole 20 mg Cap-DR, 20 mg= 1 cap(s), Oral, BID tetracycline 500 mg Cap, 500 mg= 1 cap(s), Oral, q6hr Allergies No Known Medication Allergies Social History Alcohol Past, Liquor, Daily, 11/26/2024 Substance Abuse Marijuana, Daily, Previous treatment: None., 11/26/2024 Never., 11/18/2024 Tobacco (more content not included)... Normal [facility] Comment on above: Result Comment: Elec tronically Signed By: MICHELE CHURCH CNP\.br\Date and Time Signed: 11/26/24 13:16 EDT Family Medicine Office/Clini c Noteon 11-18-2024 Family Medicine Office/Clinic Note Family Medicine Office/Clinic Note Chief Complaint The patient presents with ongoing gastrointestinal distress characterized by bloating and vomiting. HPI Staff Eli is a 44 year old female presenting with sulfur burps/gas Onset: Started right around [place]... after a stomach flu a day or 2 burping pedraza;michelle... has vomited color of sand, looked like coffee grounds, every day she is burping sulfur.... but has not vomiting in about 2 weeks She tried Rolaids, GasX neither one helped... just masked the taste for about 1-2 hours History of Present Illness 44-year-old female presenting with symptoms of periodic gastrointestinal distress following a suspected viral gastroenteritis shared by her family in July 2024. Her symptoms began with flu-like illness resulting in significant weight loss. Following recovery, she experienced bouts of sulfuric belching, abdominal bloating, and vomiting, with episodes resembling coffee ground emesis only sosa in color. These symptoms wax and wane, are associated with dairy and candy intake, and have resisted self-treatment with common [id number] medications. Review of Systems PHQ Score Initial Depression Screen Score: 0 SCORE - Gastrointestinal: Reports vomiting of gritty substance, sulfuric belching, abdominal distension. Physical Exam Vitals & Measurements T: 36.4 ???C(Oral) HR: 88(Peripheral) RR: 20 BP: 124/84 SpO2: 99% HT: 166.0 cm HT: 65 in WT: 61.8 kg WT: 136.246 lb BMI: 22.43 General: alert, no acute distress Skin: warm, dry Head: no trauma, normocephalic Cardiovascular: regular rate and rhythm, normal peripheral perfusion Respiratory: Lungs CTA, respirations non labored Gastrointestinal: soft, non distended, no tenderness, no guarding. Neurological: oriented x 4, LOC appropriate for age, CN II-XII intact speech normal Psychiatric: cooperative, affect appropriate for age, normal judgement, normal psychiatricthoughts. Assessment/Plan 1. H. pylori infection (A04.8: Other specified bacterial intestinal infections) - Evaluate for gastric infection and consider antibiotic therapy pending results. - Potential start of PPI to manage excess stomach acid. - If symptoms persist, plan referral to Gastroenterology for advanced diagnostic procedures. - f/u in 2 weeks Ordered: omeprazole, 20 mg = 1 cap(s), Oral, BID, X 14 day(s), # 28 cap(s), Refills(s) 0, Pharmacy: [id number], 166, cm, 11/18/24 10:51:00 EDT, Height/Length Dosing, 61.8, kg, 11/18/24 10:51:00 EDT, Weight Dosing tetracycline, 500 mg = 1 cap(s), Oral, q6hr, X 10 day(s), # 40 cap(s), Refills(s) 0, Pharmacy: [id number], 166, cm, 11/18/24 10:51:00 EDT, Height/Length Dosing, 61.8, kg, 11/18/24 10:51:00 EDT, Weight Dosing 2. Former smoker (Z87.891: Personal history of nicotine dependence) Encouraged to continue as a non- smoker 3. Marijuana use (F12.90: Cannabis use, unspecified, uncomplicated) Discussed effects of marijuana on GI system - Continue to track usage trends and address emerging health implications. 4. BMI 22.0-22.9, adult (Z68.22: Body mass index [BMI] 22.0-22.9, adult) Monitor weight at each visit Encourage diet as tolerated Follow-up With When Contact Information MICHELE CHURCH CNP, FAM Within 2 weeks [address] [place] [address] Business (1) Additional Instructions: GI concerns Patient Education Antibiotic Medicine, Adult, Wefl-bl-Vofj Problem List/Past Medical History Ongoing BMI 23.0-23.9, adult Breast cancer screening by mammogram Cervical cancer screening Nonsmoker Well woman exam Historical No qualifying data Medications omeprazole 20 mg Cap-DR, 20 mg= 1 cap(s), Oral, BID tetracycline 500 mg Cap, 500 mg= 1 cap(s), Oral, q6hr Allergies No Known Medication Allergies Social History Alcohol Past. Liquor. Daily., 11/18/2024 Substance Abuse Current, Marijuana, Daily, 11/18/2024 Never., 11/18/2024 Tobacco Former smoker, quit more than 30 days ago, quit 20 years ago Tobacco Use:., 11/18/2024 Family History Family history is negative Normal [facility] Comment on above: Result Comment: Elec tronically Signed By: MICHELE CHURCH CNP\.br\Date and Time Signed: 11/18/24 11:30 EDT Reminderson 05-27-2024 Reminders Reminders - From: Shae Lockhart To: [facility] - Clinical; Sent: 05/27/2024 08:12:03 EDT Show up: 05/27/2024 08:12:00 EDT Subject: Ambulatory Reminder Due Date/Time: 05/28/2024 08:11:00 EDT pap was negative Results: Date Result Name Value Ref Range 05/20/2024 10:08 HPV Aptima Negative (Negative - ) 05/20/2024 10:08 PAP Note LM on requesting pt call back for results. Pt has been notified. Normal [facility] PAP [id number] 05-25-2024 Cytology report Cyto stain Doc (Cvx/Vag) Note Invalid Interpretation Code [facility] Comment on above: Result Comment: TEST S RESULT FLAG UNITS REF RANGE LAB Clinician Provided Cytology Information No. of containers..01 ThinPrep Vial DIAGNOSIS: 01 NEGATIVE FOR INTRAEPITHELIAL LESION OR MALIGNANCY. Specimen adequacy: 01 Satisfactory for evaluation. No endocervical component is identified. Performed by: Shell Young, Lubrication Supervisor ([facility]) . 01 Note: Note 01 The Pap smear is a screening test designed to aid in the detection of premalignant and malignant conditions of the uterine cervix. It is not a diagnostic procedure and should not be used as the sole means of detecting cervical cancer. Both false-positive and false-negative reports do occur. Test Methodology: Note 01 This liquid based ThinPrep(R) pap test was screened with the use of an image guided system. HPV Genotype Reflex Note 01 Criteria not met, HPV Genotype not performed. FLAG LEGEND: L-Low Normal,H-High Normal,LL-Alert Low,HH-Alert High <-Panic Low,>-Panic High,A-Abnormal,AA-Critical Abnormal Performed at: [address] [facility] [id number] June Mcgowan MD, Performed By: #### 1 [id number] #### [facility] [address] [place] [address] HPV 16+18+31+33+35+39+45+5 1+52+56+58+59+66+68 DNA Probe+sig amp Ql (Cvx) Negative Invalid Interpretation Code Negative [facility] Comment on above: Result Comment: This nucleic acid amplification test detects fourteen high-risk HPV types (16,18,31,33,35,39,45,51,52,56,58,59,66,68) without differentiation. Performed at: [facility] [id number] MD Juan M Watkins Performed at: =[facility] [address] [place], [place] [id number] MD Juan M Watkins Performed By: #### 1 [id number] #### [facility] [address] [place] [address] Ambulatory Visit Summaryon 0 05-20-2024 Ambulatory Visit Summary Ambulatory Visit Summary ELI WILLARD :1980 Visit Date:05/20/2024 Ambulatory Visit Instructions Your Diagnosis Well woman exam Cervical cancer screening Breast cancer screening by mammogram Former smoker BMI 23.0-23.9, adult Your Care Team Attending Physician - Shae Lockhart Primary Care Physician - MICHELE CHURCH CNP This Is Your Medications List petrolatum topical (Aquaphor Healing topical ointment) Discharge Vitals Temperature (Oral) 36.5 ?C Heart Rate (Peripheral) 110 Respiratory Rate 18 Blood Pressure 116/68 Height 166.0 cm Height 65 in Weight 63.60 kg Weight 139.92 lb BMI 23.08 What to do next Scheduled Follow-Up Appointments Monday 10:00 AM EDT With: MICHELE CHURCH CNP Where: [address] [address]- Medications What How Much When Why Instructions Unchanged petrolatum topical (Aquaphor Healing topical ointment) See instructions Rash of hand Apply to dry areas of the hands, elbows, and knees Allergies No Known Medication Allergies Problems Ongoing - Any problem that you are currently receiving treatment for. BMI 23.0-23.9, adult Breast cancer screening by mammogram Cervical cancer screening Nonsmoker Well woman exam Patient Survey You may receive a survey via text or e-mail asking about your office visit. Please share your experience with us by completing your survey. We appreciate your feedback and thank you for choosing us for your care. Lynnette [facility] Family Medicine Office/Clini c Noteon 05-20-2024 Family Medicine Office/Clinic Note Family Medicine Office/Clinic Note HPI Staff Eli is a 43 year old female presenting with Ranjit patient Last pap: >2yrs ago Results of lap pap: NOMAL Where was it done: [place] hx: # of pregnancies... 6 abortions... 0 live births... 2 living... 2 children... Miscarriage 4 menstrual cycle (normal,heavy,ect): PCOS every 32 days History of STD: NO Do you want tested for STD today: NO Vaginal discharge, odor, itching: discharge from decongestion Self breast exam at home? YES but not regular Hx of breast, cervical or uterine cancer in the family: none Hx of Hysterectomy? NO History of Present Illness pt presents today for well woman exam Review of Systems PHQ Score Initial Depression Screen Score: 0 SCORE Physical Exam Vitals & Measurements T: 36.5 ?C(Oral) HR: 110(Peripheral) RR: 18 BP: 116/68 SpO2: 97% HT: 65 in HT: 166.0 cm WT: 63.60 kg WT: 139.92 lb BMI: 23.08 General: Well developed, well nourished, in no acute distress Neck: Neck supple. No masses or palpable cervical nodes. Trachea midline. Thyroid without nodules, masses, tenderness, or enlargement Breast: No mass, nodule, discharge, or erythema bilaterally, and no axillary lymphadenopathy Lungs: Normal respiratory effort and clear to auscultation Cardio: Regular rate and rhythm, normal S1 and S2, no murmur, no rub Abdomen: Soft, non-distended, non-tender, normal bowel sounds x4 Gyno: normal external genitalia. Urethra no discharge. Vagina normal without lesions, no vaginal discharge. Cervix normal, without lesions. Uterus normal. No adnexal masses. Pap obtained Neurologic: Grossly normal Skin: Bostic, moist, no tenting Lymph Nodes: No cervical adenopathy, nodes normal Mental Status: Alert and oriented x3. Normal mood and affect Assessment/Plan 1. Well woman exam (Z01.419: Encounter for gynecological examination (general) (routine) without abnormal findings) pt presents today for well woman exam. Ordered: Est Preventative 40 to 64 years [address] PAP [id number] w/ HPV and Genotype rflx 2. Cervical cancer screening (Z12.4: Encounter for screening for malignant neoplasm of cervix) pap obtained Ordered: Est Preventative 40 to 64 years [address] PAP [id number] w/ HPV and Genotype rflx 3. Breast cancer screening by mammogram (Z12.31: Encounter for screening mammogram for malignant neoplasm of breast) mammogram order provided for [facility]. Pt does not drive so she wanted to stay local Ordered: Est Preventative 40 to 64 years [address] 4. Former smoker (Z87.891: Personal history of nicotine dependence) continue not smoking Ordered: Est Preventative 40 to 64 years [address] 5. BMI 23.0-23.9, adult (Z68.23: Body mass index [BMI] 23.0-23.9, adult) BMI education given Ordered: Est Preventative 40 to 64 years [address] Follow-up No qualifying data available Problem List/Past Medical History Ongoing BMI 23.0-23.9, adult Breast cancer screening by mammogram Cervical cancer screening Nonsmoker Well woman exam Historical No qualifying data Medications Aquaphor Healing topical ointment, See Instructions Allergies No Known Medication Allergies Social History Tobacco Former smoker, quit more than 30 days ago, quit 20 years ago Tobacco Use:. Never Smokeless Tobacco Use:. Cigarettes, Household tobacco concerns: No. Yes, 05/20/2024 Family History Family history is negative Normal [facility] Comment on above: Result Comment: Elec tronically Signed By: Shae Lockhart\.br\Date and Time Signed: 05/20/24 10:13 EDT PAP [id number] 05-20-2024 Gynecological Body Site ENDOCERVIX Normal [facility] Comment on above: Performed By: #### 1 [id number] #### [facility] [address] [place] [address] Ambulatory Visit Summaryon 0 05-06-2024 Ambulatory Visit Summary Ambulatory Visit Summary ELI WILLARD :1980 Visit Date:05/06/2024 Ambulatory Visit Instructions Your Diagnosis Rash of hand Screening for breast cancer Encounter to establish care with new doctor BMI 23.0-23.9, adult Nonsmoker Tests Performed MA Mamm Screen w/CAD if perf and 3D Zackary -- Results Pending -- Please visit your patient portal for your results or contact your primary care physician. Your Care Team Attending Physician - MICHELE CHURCH CNP Primary Care Physician - MICHELE CHURCH CNP Discharge Vitals Heart Rate (Peripheral) 102 Respiratory Rate 16 Blood Pressure 122/78 Height 166 cm Height 65 in Weight 65 kg Weight 143 lb BMI 23.59 What to do next Scheduled Follow-Up Appointments Monday 10:00 AM EDT With: Shae Lockhart Where: [address] [address]- Monday 10:00 AM EDT With: MICHELE CHURCH CNP Where: [address] [address]- Allergies No Known Medication Allergies Problems Ongoing - Any problem that you are currently receiving treatment for. BMI 23.0-23.9, adult Nonsmoker Patient Survey You may receive a survey via text or e-mail asking about your office visit. Please share your experience with us by completing your survey. We appreciate your feedback and thank you for choosing us for your care. Normal [facility] CBC w/ Auto Diffon 4 Basophils/100 WBC (Bld) 1.0 % Normal 0.0-2.0 [facility] Comment on above: Performed By: #### 2 [id number] #### [facility] [address] [place] [address] Basophils/Leukocytes Auto (Bld) [Pure # fraction] 0.1 E9/L Normal 0.0-0.2 [facility] Comment on above: Performed By: #### 2 [id number] #### [facility] [address] [place] [address] Eosinophils (Bld) [#/Vol] 0.2 E9/L Normal 0.0-0.5 [facility] Comment on above: Performed By: #### 2 [id number] #### [facility] [address] [place] [address] Eosinophils/100 WBC (Bld) 3.6 % Normal 0.0-8.0 [facility] Comment on above: Performed By: #### 2 [id number] #### [facility] [address] [place] [address] Erythrocyte distribution width (RBC) [Ratio] 13.0 % Normal 10.9-14.2 [facility] Comment on above: Performed By: #### 2 [id number] #### [facility] [address] [place] [address] Hematocrit (Bld) [Volume fraction] 42.4 % Normal 34.0-46.0 [facility] Comment on above: Performed By: #### 2 [id number] #### [facility] [address] [place] [address] Hemoglobin (Bld) [Mass/Vol] 14.5 g/dL Normal 12.0-16.0 [facility] Comment on above: Performed By: #### 2 [id number] #### [facility] [address] [place] [address] Lymphocytes (Bld) [#/Vol] 1.5 E9/L Normal 1.0-4.0 [facility] Comment on above: Performed By: #### 2 [id number] #### [facility] [address] [place] [address] Lymphocytes/100 WBC (Bld) 28.6 % Normal 14.0-50.0 [facility] Comment on above: Performed By: #### 2 [id number] #### [facility] [address] [place] [address] MCH (RBC) [Entitic mass] 30.6 pg Normal 27.0-34.0 [facility] Comment on above: Performed By: #### 2 [id number] #### [facility] [address] [place] [address] MCHC (RBC) [Mass/Vol] 34.3 g/dL Normal 31.4-36.0 [facility] Comment on above: Performed By: #### 2 [id number] #### [facility] [address] [place] [address] MCV (RBC) [Entitic vol] 89.3 fL Normal 80.0-100.0 [facility] Comment on above: Performed By: #### 2 [id number] #### [facility] [address] [place] [address] Monocytes (Bld) [#/Vol] 0.3 E9/L Normal 0.2-1.0 [facility] Comment on above: Performed By: #### 2 [id number] #### [facility] [address] [place] [address] Neutrophils (Bld) [#/Vol] 3.3 E9/L Normal 2.0-7.5 [facility] Comment on above: Performed By: #### 2 [id number] #### [facility] [address] [place] [address] Neutrophils/100 WBC (Bld) 61.3 % Normal 36.0-75.0 [facility] Comment on above: Performed By: #### 2 [id number] #### [facility] [address] [place] [address] Platelet mean volume (Bld) [Entitic vol] 9.2 fL Normal 6.4-10.8 [facility] Comment on above: Performed By: #### 2 [id number] #### [facility] [address] [place] [address] Platelets (Bld) [#/Vol] 273.0 E9/L Normal 150.0-500.0 [facility] Comment on above: Performed By: #### 2 [id number] #### [facility] [address] [place] [address] RBC (Bld) [#/Vol] 4.8 E12/L Normal 4.3-5.9 [facility] Comment on above: Performed By: #### 2 [id number] #### [facility] [address] [place] [address] WBC corrected for nucl RBC Auto (Bld) [#/Vol] 5.4 E9/L Normal 4.0-11.0 [facility] Comment on above: Performed By: #### 2 [id number] #### [facility] [address] [place] [address] CHEMISTRYOrdered By: SYSTEM SYSTEM on 05-06-2024 Albumin [Mass/Vol] 4.6 g/dL Normal 3.3 - 5.0 gm/dL Remisol Chem Albumin/Globulin [Mass ratio] 1.9 {ratio} Normal 1.1 - 2.2 Remisol Chem ALP [Catalytic activity/Vol] 60 [iU]/d Normal 21 - 98 Int._Unit/L Remisol Chem ALT No additional P-5'-P [Catalytic activity/Vol] 12 [iU]/d Normal 6 - 46 Int._Unit/L Remisol Chem Anion gap [Moles/Vol] 9 mmol/L Normal 6 - 16 mEq/L R emisol Chem AST [Catalytic activity/Vol] 16 [iU]/d Normal 5 - 43 Int._Unit/L Remisol Chem Bilirubin [Mass/Vol] 0.9 mg/dL Normal 0.0 - 1 .1 mg/dL Remisol Chem Calcium [Mass/Vol] 9.3 mg/dL Normal 8.9 - 11. 1 mg/dL Remisol Chem Chloride [Moles/Vol] 105 mmol/L Normal 101 - 1 11 mmol/L Remisol Chem CO2 [Moles/Vol] 30 mmol/L Normal 21 - 31 mmol/L Remisol Chem Creatinine [Mass/Vol] 0.7 mg/dL Normal 0.5 - 1.3 mg/dL Remisol Chem eGFR 111 mL/min/1.73 m2 Normal >=59mL/mi n/1. 73 m2 Remisol Chem Globulin (S) [Mass/Vol] 2.4 g/dL Normal 1.4 - 4.0 gm/dL Remisol Chem Glucose [Mass/Vol] 102 mg/dL Normal 55 - 199 mg/dL Remisol Chem Potassium [Moles/Vol] 4.0 mmol/L Normal 3.5 - 5.3 mmol/L Remisol Chem Protein [Mass/Vol] 7.0 g/dL Normal 6.0 - 7.8 gm/dL Remisol Chem Sodium [Moles/Vol] 140 mmol/L Normal 135 - 145 mmol/L Remisol Chem TSH Qn 0.95 m[IU]/L Normal 0.34 - 5.60 mcIU/mL Remisol Chem Urea nitrogen [Mass/Vol] 6 mg/dL Normal 5 - 21 mg/dL Remisol Chem Urea nitrogen/Creatinine [Mass ratio] 9 mg/mg Low 10 - 20 Remisol Chem CMPon 05-06-2024 Albumin [Mass/Vol] 4.6 g/dL Normal 3.3-5.0 [facility] Comment on above: Performed By: #### 2 [id number] #### [facility] [address] [place] [address] Albumin/Globulin (S) [Mass conc ratio] 1.9 Normal 1.1-2.2 [facility] Comment on above: Performed By: #### 2 [id number] #### [facility] [address] [place] [address] ALP [Catalytic activity/Vol] 60 Int._Unit/L Normal 21-98 [facility] Comment on above: Performed By: #### 2 [id number] #### [facility] [address] [place] [address] ALT No additional P-5'-P [Catalytic activity/Vol] 12 Int._Unit/L Normal 6-46 [facility] Comment on above: Performed By: #### 2 [id number] #### [facility] [address] [place] [address] Anion gap [Moles/Vol] 9 mmol/L Normal 6-16 [facility] Comment on above: Performed By: #### 2 [id number] #### [facility] [address] [place] [address] AST [Catalytic activity/Vol] 16 Int._Unit/L Normal 5-43 [facility] Comment on above: Performed By: #### 2 [id number] #### [facility] [address] [place] [address] Bilirubin [Mass/Vol] 0.9 mg/dL Normal 0.0-1.1 [facility] Comment on above: Performed By: #### 2 [id number] #### [facility] [address] [place] [address] Calcium [Mass/Vol] 9.3 mg/dL Normal 8.9-11.1 [facility] Comment on above: Performed By: #### 2 [id number] #### [facility] [address] [place] [address] Chloride [Moles/Vol] 105 mmol/L Normal 101-111 [facility] Comment on above: Performed By: #### 2 [id number] #### [facility] [address] [place] [address] CO2 [Moles/Vol] 30 mmol/L Normal 21-31 [facility] Comment on above: Performed By: #### 2 [id number] #### [facility] [address] [place] [address] Creatinine [Mass/Vol] 0.7 mg/dL Normal 0.5-1.3 [facility] Comment on above: Performed By: #### 2 [id number] #### [facility] [address] [place] [address] Globulin (S) [Mass/Vol] 2.4 g/dL Normal 1.4-4.0 [facility] Comment on above: Performed By: #### 2 [id number] #### [facility] [address] [place] [address] Glucose [Mass/Vol] 102 mg/dL Normal 55-199 [facility] Comment on above: Performed By: #### 2 [id number] #### [facility] [address] [place] [address] Potassium [Moles/Vol] 4.0 mmol/L Normal 3.5-5.3 [facility] Comment on above: Performed By: #### 2 [id number] #### [facility] [address] [place] [address] Protein [Mass/Vol] 7.0 g/dL Normal 6.0-7.8 [facility] Comment on above: Performed By: #### 2 [id number] #### [facility] [address] [place] [address] Sodium [Moles/Vol] 140 mmol/L Normal 135-145 [facility] Comment on above: Performed By: #### 2 [id number] #### [facility] [address] [place] [address] Urea nitrogen [Mass/Vol] 6 mg/dL Normal 5-21 [facility] Comment on above: Performed By: #### 2 [id number] #### [facility] [address] [place] [address] Urea nitrogen/Creatinine [Mass ratio] 9 No Units Low 10-20 [facility] Comment on above: Performed By: #### 2 [id number] #### [facility] [address] [place] [address] Family Medicine Office/Clini c Noteon 05-06-2024 Family Medicine Office/Clinic Note Family Medicine Office/Clinic Note Chief Complaint Establish Care HPI Staff New pt here today due to rash & skin issues. Duration: _ New or Recurrent: past 2yrs. Location: Rt hand mainly Description Dry red irritated skin on hands Rash symptoms: burning No prior PCP. Redness and irritation to hands. Suspects psoriasis, as other family members also have. Also having knee pain. History of Present Illness 43 year old patient presents today to establish care with this provider and to have a rash evaluated. She reports she moved here about 2 years ago and has not seen a provider in that time. She states she is concerned that she may have psorasis because her mother has it. She states the areas have improved since she made the appointment. She has tried many lotions that have not helped. He has an area on the base of her neck that she believes is a melva but she would like to have this checked as well. Review of Systems PHQ Score Initial Depression Screen Score: 0 SCORE Constitutional: no fever, no chills, no sweats, no weakness Skin: no Jaundice, no rash, no lesions, nopetechiae ENMT: no ear pain, no sore throat, no congestion, no hoarseness Respiratory: no shortness of breath, no cough, no orthopnea, no wheezing Cardiovascular: no chest pain, no palpitations, no edema Gastrointestinal: no nausea, no vomiting, no diarrhea, no GI bleeding Genitourinary: no dysuria, no hematuria, no discharge, no pain Musculoskeletal: no back pain, no trauma Neurologic: no headache, no dizziness, no numbness, no weakness Psychiatric: no sleeping problems, no irritability, no mood swings/depression. Heme/Lymph: no bleeding tendency, no bruising tendency, no petechiae, no swollen nodes Allergy/Immunologic: no seasonal allergies, no food allergies, no recurrent infections, no impaired immunity Additional ROS info: Except as noted in the above Review of Systems and in the History of Present Illness all other systems have been reviewed and are negative or noncontributory. Physical Exam Vitals & Measurements HR: 102(Peripheral) RR: 16 BP: 122/78 SpO2: 97% HT: 65 in HT: 166 cm WT: 65 kg WT: 143 lb BMI: 23.59 General: alert, no acute distress Skin: warm, dry, small area of dry erythematous patch on the right hand over her knuckles; base of the posterior neck- pink colored skin- no rash Head: no trauma, normocephalic Neck: Trachea midline, no adenopathy, no tenderness Eye: normal conjunctiva, sclera clear ENMT: TM's clear, oral mucosa moist, no pharyngeal erythema or exudate Cardiovascular: regular rate and rhythm, normal peripheral perfusion Respiratory: Lungs CTA, respirations non labored Chest wall: no deformity. Gastrointestinal: soft, non distended, no tenderness, no guarding. Back: No tenderness, Normal ROM, Normal alignment. Extremities: no deformity, no trauma Neurological: oriented x 4, LOC appropriate for age, CN II-XII intact, motor strength equal & normal bilaterally, sensation equal & normal bilaterally, speech normal Psychiatric: cooperative, affect appropriate for age, normal judgement, normal psychiatric thoughts. Assessment/Plan 1. Rash of hand (R21: Rash and other nonspecific skin eruption) Discussed with patient diagnosis of eczema vs psorasis Discussed the need to put moisture back into the skin Apply Aquaphor to ghulam skin areas as needed f/u in 4 weeks Ordered: petrolatum topical, See Instructions, 396 gm, Refill(s) 0, Apply to dry areas of the hands, elbows, and knees, [facility], 166, cm, 05/06/24 10:31:00 EDT, Height/Length Dosing, 65, kg, 05/06/24 10:31:00 EDT, Weight Dosing 2. Screening for breast cancer (Z12.39: Encounter for other screening for malignant neoplasm of breast) Ordered: MA Mamm Screen w/CAD if perf and 3D Zackary 3. Encounter to establish care with new doctor (Z76.89: Persons encountering health services in other specified circumstances) Ordered: CBC w/ Auto Diff Comprehensive Metabolic Panel TSH With T4fr Reflex 4. BMI 23.0-23.9, adult (Z68.23: Body mass index [BMI] 23.0-23.9, adult) BMI 23.59 Diet as tolerated Monitor weight at each visit 5. Nonsmoker (Z78.9: Other specified health status) Patient reports she smokes marijuana- encouraged to not smoke Patient to schedule an appointment with Maryellen Cisneros CNP for PAP as she reports that has been over 2 years since her last PAP Follow-up With When Contact Information MICHELE CHURCH CNP, [facility] Additional Instructions: Patient Education Rash, Adult, [id number] Problem List/Past Medical History Ongoing BMI 23.0-23.9, adult Nonsmoker Historical No qualifying data Medications Aquaphor Healing topical ointment, See Instructions Allergies No Known Medication Allergies Social History Tobacco 4 or less cigarettes(less than 1/4 pack)/day in last 30 days Tobacco Use:. Never Smokeless Tobacco Use:. Cigarettes, Household tobacco concerns: No. Yes, 05/06/2024 [facility] (more content not included)... Normal [facility] Comment on above: Result Comment: Elec tronically Signed By: MICHELE CHURCH CNP\.br\Date and Time Signed: 05/06/24 12:29 EDT HEMATOLOGYOrdered By: SYSTEM SYSTEM on 05-06-2024 Basophils/100 WBC (Bld) 1.0 % Normal 0.0 - 2.0 % Remisol Heme Basophils/Leukocytes Auto (Bld) [Pure # fraction] 0.1 E9/L Normal 0.0 - 0.2 E9/L Remisol Heme Eosinophils (Bld) [#/Vol] 0.2 E9/L Normal 0.0 - 0.5 E9/L Remisol Heme Eosinophils/100 WBC (Bld) 3.6 % Normal 0.0 - 8.0 % Remisol Heme Erythrocyte distribution width (RBC) [Ratio] 13.0 % Normal 10.9 - 14.2 % Remisol Heme Hematocrit (Bld) [Volume fraction] 42.4 % Normal 34.0 - 46.0 % Remisol Heme Hemoglobin (Bld) [Mass/Vol] 14.5 g/dL Normal 12.0 - 16.0 gm/dL Remisol Heme Lymphocytes (Bld) [#/Vol] 1.5 E9/L Normal 1.0 - 4.0 E9/L [facility] Heme Lymphocytes/100 WBC (Bld) 28.6 % Normal 14.0 - 50.0 % Remisol Heme MCH (RBC) [Entitic mass] 30.6 pg Normal 27.0 - 34.0 pg Remisol Heme MCHC (RBC) [Mass/Vol] 34.3 g/dL Normal 31.4 - 36.0 gm/dL Remisol Heme MCV (RBC) [Entitic vol] 89.3 fL Normal 80.0 - 100.0 fL Remisol Heme Monocytes (Bld) [#/Vol] 0.3 E9/L Normal 0.2 - 1.0 E9/L Remisol Heme Monocytes/100 WBC (Bld) 5.5 % Normal 4.0 - 14.0 % Remisol Heme Neutrophils (Bld) [#/Vol] 3.3 E9/L Normal 2.0 - 7.5 E9/L Remisol Heme Neutrophils/100 WBC (Bld) 61.3 % Normal 36.0 - 75.0 % Rem[facility] Heme Platelet mean volume (Bld) [Entitic vol] 9.2 fL Normal 6.4 - 10.8 fL [facility] Heme Platelets (Bld) [#/Vol] 273.0 E9/L Normal 150.0 - 500.0 E9/L Remisol Heme RBC (Bld) [#/Vol] 4.8 E12/L Normal 4.3 - 5.9 E12/L [facility] Heme WBC corrected for nucl RBC Auto (Bld) [#/Vol] 5.4 E9/L Normal 4.0 - 11.0 E9/L Rem[facility] Heme TSH With T4fr Reflexon 05-06 TSH Qn 0.95 m[IU]/L Normal 0.34-5.60 [facility] Comment on above: Performed By: #### 1 [id number] #### [facility] [address] [place] [address] eGFRon 05-06-2024 eGFR 111 mL/min/1.73 m2 Normal >=59 [facility] Comment on above: Order Comment: Order added by Discern Expert. Performed By: #### 1 [id number] #### [facility] [address] [place] [address] Encounters Encounter Date Encounter Type Care Provider Facility Start: 03-17-2025 End: 03-17-2025 ambulatory MICHELE A RANJIT [facility] Start: 03-13-2025 End: 03-13-2025 ambulatory MICHELE A RANJIT [facility] Start: 01-16-2025 End: 01-16-2025 ambulatory MICHELE A RANJIT [facility] Start: 01-02-2025 End: 01-02-2025 ambulatory MICHELE A RANJIT Facility:[facility] Start: 12-27-2024 End: 12-27-2024 ambulatory MICHELE A RANJIT Facility:[facility] Start: 12-20-2024 End: 12-20-2024 ambulatory MICHELE A RANJIT Facility[facility] Start: 12-20-2024 End: 12-20-2024 Patient encounter procedure MICHELE A RANJIT [facility] Start: 12-02-2024 End: 12-02-2024 Lab Drop off MICHELE A RANJIT [facility] Start: 12-02-2024 End: 12-02-2024 ambulatory MICHELE A RANJIT Facility[facility] Start: 11-26-2024 End: 11-26-2024 ambulatory MICHELE A RANJIT Facility:[facility] Start: 11-18-2024 End: 11-18-2024 ambulatory MICHELE A RANJIT Facility:[facility] Start: 06-03-2024 End: 06-03-2024 ambulatory MICHELE A RANJIT Facility:[facility] Start: 05-20-2024 End: 05-20-2024 Lab Drop off Shae L Blayne [facility] Start: 05-20-2024 End: 05-20-2024 ambulatory Shae L Blayne Facility[facility] Start: 05-06-2024 End: 05-06-2024 Lab Drop off MICHELE A RANJIT [facility] Start: 05-06-2024 End: 05-06-2024 ambulatory MICHELE A RANJIT Facility[facility] Start: 05-02-2024 ambulatory MICHELE RANJIT Facility :[facility] Jack Payers Date Payer Category Payer Medicaid [id number] 2024 Medicaid [id number] 2024 Private Health Insurance [id number] 1982 Unknown [id number] 2.16.8 [id number] 1982 Unknown [id number] 2.16.8 40.1.128372.3.579.2.727 1982 Unknown [id number] 2.16.8 40.1.030844.3.579.2727 1982 Unknown [id number] 2.16.8 40.1.485856.3.579.2.727 1982 Unknown [id number] 2.16.8 40.1.102928.3.579.2.727 1982 Unknown [id number] 2.16.8 40.1.764284.3.579.2.727 1982 Unknown [id number] 2.16.8 40.1.172953.3.579.2.727 1982 Unknown [id number] 2.16.8 40.1.747150.3.579.2.727 1982 Unknown [id number] 2.16.8 40.1.941310.3.579.2. 1982 Unknown [id number] 2.16.8 40.1.143993.3.579.2.727 1982 Unknown [id number] 2.16.8 40.1.918069.3.579.2. 1982 Unknown [id number] 2.16.8 40.1.745401.3.579.2.7 1982 Unknown [id number] 2.16.8 40.1.328209.3.579.2.7 1982 Unknown [id number] 2.16.8 40.1.347150.3.579.2.7 1982 Unknown [id number] 2.16.8 40.1.716078.3.579.2. 1982 Unknown [id number] 2.16.8 40.1.003322.3.579.2.7 1982 Unknown [id number] 2.16.8 40.1.268967.3.579.2.727 1982 Unknown [id number] 2.16.8 40.1.415426.3.579.2.727 Self-pay Social History Date Type Detail Facility Start: 05-20-2024 End: 12-02-2024 Tobacco smoking status Ex-smoker (finding) [facility] Tobacco smoking status Never Satishe [facility] Sex Assigned At Female [facility] Start: 05-06-2024 Tobacco smoking status Light t obacco smoker (finding) [facility] Sexual Orientation [facility] Sex Female (finding) [facility] Clinical Notes 05-06-2024 to 03-17-2025 Radiology Note Date & Type Note Facility 03-17-2025 Note Nurse Consultation N ote Reason for Visit patient came IO for lab draw Assessment/Plan 1. Menopausal symptom (N95.1: Menopausal and female climacteric states) 2. Well woman exam (Z01.419: Encounter for gynecological examination (general) (routine) without abnormal findings) Medications No active medications Allergies No Known Allergies No Known Medication Allergies [facility] 03-13-2025 Note Patient Education Obstetrics and Gynecology Health Maintenance, Female Adopting a healthy lifestyle and getting preventive care are important in promoting health and wellness. Ask your health care provider about: ??? The right schedule for you to have regular tests and exams. ??? Things you can do on your own to prevent diseases and keep yourself healthy. What should I know about diet, weight, and exercise? Eat a healthy diet ??? Eat a diet that includes plenty of vegetables, fruits, low-fat dairy products, and lean protein. ??? Do not eat a lot of foods that are high in solid fats, added sugars, or sodium. Maintain a healthy weight Body mass index (BMI) is used to identify weight problems. It estimates body fat based on height and weight. Your health care provider can help determine your BMI and help you achieve or maintain a healthy weight. Get regular exercise Get regular exercise. This is one of the most important things you can do for your health. Most adults should: ??? Exercise for at least 150 minutes each week. The exercise should increase your heart rate and make you sweat (moderate-intensity exercise). ??? Do strengthening exercises at least twice a week. This is in addition to the moderate-intensity exercise. ??? Spend less time sitting. Even light physical activity can be beneficial. Watch cholesterol and blood lipids Have your blood tested for lipids and cholesterol at 20 years of age, then have this test every 5 years. Have your cholesterol levels checked more often if: ??? Your lipid or cholesterol levels are high. ??? You are older than 40 years of age. ??? You are at high risk for heart disease. What should I know about cancer screening? Depending on your health history and family history, you may need to have cancer screening at various ages. This may include screening for: ??? Breast cancer. ??? Cervical cancer. ??? Colorectal cancer. ??? Skin cancer. ??? Lung cancer. What should I know about heart disease, diabetes, and high blood pressure? Blood pressure and heart disease ??? High blood pressure causes heart disease and increases the risk of stroke. This is more likely to develop in people who have high blood pressure readings or are overweight. ??? Have your blood pressure checked: ? Every 3?5 years if you are 18?39 years of age. ? Every year if you are 40 years old or older. Diabetes Have regular diabetes screenings. This checks your fasting blood sugar level. Have the screening done: ??? Once every three years after age 40 if you are at a normal weight and have a low risk for diabetes. ??? More often and at a younger age if you are overweight or have a high risk for diabetes. What should I know about preventing infection? Hepatitis B If you have a higher risk for hepatitis B, you should be screened for this virus. Talk with your health care provider to find out if you are at risk for hepatitis B infection. Hepatitis C Testing is recommended for: ??? Everyone born from 1945 through 1965. ??? Anyone with known risk factors for hepatitis C. Sexually transmitted infections (STIs) ??? Get screened for STIs, including gonorrhea and chlamydia, if: ? You are sexually active and are younger than 24 years of age. ? You are older than 24 years of age and your health care provider tells you that you are at risk for this type of infection. ? Your sexual activity has changed since you were last screened, and you are at increased risk for chlamydia or gonorrhea. Ask your health care provider if you are at risk. ??? Ask your health care provider about whether you are at high risk for HIV. Your health care provider may recommend a prescription medicine to help prevent HIV infection. If you choose to take medicine to prevent HIV, you should first get tested for HIV. You should then be tested every 3 months for as long as you are taking the medicine. ??? If you are about to stop having your period (premenopausal) and you may become , seek counseling before you get . ??? Take 400 to 800 micrograms (mcg) of folic acid every day if you become . ??? Ask for control (contraception) if you want to prevent . Osteoporosis and menopause Osteoporosis is a disease in which the bones lose minerals and strength with aging. This can result in bone fractures. If you are 65 years old or older, or if you are at risk for osteoporosis and fractures, ask your health care provider if you should: ??? Be screened for bone loss. ??? Take a calcium or vitamin D supplement to lower your risk of fractures. ??? Be given hormone replacement therapy (HRT) to treat symptoms of menopause. Follow these instructions at home: Alcohol use ??? Do not drink alcohol if: ? Your health care provider tells you not to drink. ? You are , may be , or are planning to become . ??? If you drink alcohol: ? (more content not included)... [facility] 01-16-2025 Note Patient Education Immunology Allergic Rhinitis, Adult Allergic rhinitis is a reaction to allergens. Allergens are things that can cause an allergic reaction. This condition affects the lining inside the nose (mucous membrane). There are two types of allergic rhinitis: ??? Seasonal. This type is also called hay fever. It happens only during some times of the year. ??? Perennial. This type can happen at any time of the year. This condition cannot be spread from person to person (is not contagious). It can be mild, bad, or very bad. It can develop at any age and may be outgrown. What are the causes? Pollen from grasses, trees, and weeds. Other causes can be: ??? Dust mites. ??? Smoke. ??? Mold. ??? Car fumes. ??? The pee (urine), spit, or dander of pets. Dander is skin cells from a pet. What increases the risk? You are more likely to develop this condition if: ??? You have allergies in your family. ??? You have problems like allergies in your family. You may have: ? Swelling of parts of your eyes and eyelids. ? Asthma. This affects how you breathe. ? Long-term redness and swelling on your skin. ? Food allergies. What are the signs or symptoms? The main symptom of this condition is a runny or stuffy nose (nasal congestion). Other symptoms may include: ??? Sneezing or coughing. ??? Itching and tearing of your eyes. ??? Mucus that drips down the back of your throat (postnasal drip). This may cause a sore throat. ??? Trouble sleeping. ??? Feeling tired. ??? Headache. How is this treated? There is no cure for this condition. You should avoid things that you are allergic to. Treatment can help to relieve symptoms. This may include: ??? Medicines that block allergy symptoms, such as anti-inflammatories or antihistamines. These may be given as a shot, nasal spray, or pill. ??? Avoiding things you are allergic to. ??? Medicines that give you some of what you are allergic to over time. This is called immunotherapy. It is done if other treatments do not help. You may get: ? Shots. ? Medicine under your tongue. ??? Stronger medicines, if other treatments do not help. Follow these instructions at home: Avoiding allergens Find out what things you are allergic to and avoid them. To do this, try these things: ??? If you get allergies any time of year: ? Replace carpet with wood, tile, or vinyl broderick. Carpet can trap pet dander and dust. ? Do not smoke. Do not allow smoking in your home. ? Change your heating and air conditioning filters at least once a month. ??? If you get allergies only some times of the year: ? Keep windows closed when you can. ? Plan things to do outside when pollen counts are lowest. Check pollen counts before you plan things to do outside. ? When you come indoors, change your clothes and shower before you sit on furniture or bedding. ??? If you are allergic to a pet: ? Keep the pet out of your bedroom. ? Vacuum, sweep, and dust often. General instructions ??? Take dbbh-lhh-jstwncx and prescription medicines only as told by your doctor. ??? Drink enough fluid to keep your pee pale yellow. Where to find more information ??? [employer]: aaaai.org Contact a doctor if: ??? You have a fever. ??? You get a cough that does not go away. ??? You make high-pitched whistling sounds when you breathe, most often when you breathe out (wheeze). ??? Your symptoms slow you down. ??? Your symptoms stop you from doing your normal things each day. Get help right away if: ??? You are short of breath. This symptom may be an emergency. Get help right away. Call 911. ??? Do not wait to see if the symptom will go away. ??? Do not drive yourself to the hospital. This information is not intended to replace advice given to you by your health care provider. Make sure you discuss any questions you have with your health care provider. Document Revised: 04/17/2023 Document Reviewed: 04/17/2023 [employer] Patient Education ? 2023 [employer] [facility] 01-02-2025 Note Patient Education ENT Earache, Adult An earache, or ear pain, can be caused by many things, including: ??? An infection. ??? Ear wax buildup. ??? Ear pressure. ??? Something in the ear that should not be there (foreign body). ??? A sore throat. ??? Tooth problems. ??? Jaw problems. Treatment of the earache will depend on the cause. If the cause is not clear or cannot be known, you may need to watch your symptoms until your earache goes away or until a cause is found. Follow these instructions at home: Medicines ??? Take or apply uvoa-xcf-etxwmpo and prescription medicines only as told by your health care provider. ??? If you were prescribed antibiotics, use them as told by your health care provider. Do not stop using the antibiotic even if you start to feel better. ??? Do not put anything in your ear other than medicine that is prescribed by your health care provider. Managing pain If directed, apply heat to the affected area as often as told by your health care provider. Use the heat source that your health care provider recommends, such as a moist heat pack or a heating pad. ??? Place a towel between your skin and the heat source. ??? Leave the heat on for 20?30 minutes. ??? If your skin turns bright red, remove the heat right away to prevent donato. The risk of donato is higher if you cannot feel pain, heat, or cold. If directed, put ice on the affected area. To do this: ??? Put ice in a plastic bag. ??? Place a towel between your skin and the bag. ??? Leave the ice on for 20 minutes, 2?3 times a day. ??? If your skin turns bright red, remove the ice right away to prevent skin damage. The risk of skin damage is higher if you cannot feel pain, heat, or cold. General instructions ??? Pay attention to any changes in your symptoms. ??? Try resting in an upright position instead of lying down. This may help to reduce pressure in your ear and relieve pain. ??? Chew gum if it helps to relieve your ear pain. ??? Treat any allergies as told by your health care provider. ??? Drink enough fluid to keep your urine pale yellow. ??? It is up to you to get the results of any tests that were done. Ask your health care provider, or the department that is doing the tests, when your results will be ready. Contact a health care provider if: ??? Your pain does not improve within 2 days. ??? Your earache gets worse. ??? You have new symptoms. ??? You have a fever. Get help right away if: ??? You have a severe headache. ??? You have a stiff neck. ??? You have trouble swallowing. ??? You have redness or swelling behind your ear. ??? You have fluid or blood coming from your ear. ??? You have hearing loss. ??? You feel dizzy. This information is not intended to replace advice given to you by your health care provider. Make sure you discuss any questions you have with your health care provider. Document Revised: 12/19/2022 Document Reviewed: 12/19/2022 Else[employer] Patient Education ? 2023 [employer] [facility] 12-27-2024 Note Patient Education Caregiving Ear Drops, Adult Your doctor has found that you have a condition that requires you to use ear drops. Ear drops are a medicine that is placed in the ear. You may need to use ear drops in one ear or both ears. The following information offers guidance on how to use your ear drops. Your doctor may also give you more instructions. Supplies needed: ??? Cotton balls. ??? Ear drops. How to put ear drops into your ear 1. Wash your hands with soap and water for at least 20 seconds. If you cannot use soap and water, use hand bar finish operator. 2. Make sure your ears are clean and dry. 3. If there is earwax or fluid at the outer part of the ear canal, wipe it out gently with a cotton-tipped swab. 4. Warm the medicine by holding it in your hand for a few minutes. 5. Shake the medicine gently to mix the ear drops. 6. Use the dropper to draw up the ear drops. You will need to squeeze the round part of the dropper to do this. 7. Put the drops in your ear as told. Hold the dropper above your ear. Do not let the dropper touch your ear. The medicine may go in more easily if you pull the flap of your ear up and back while you put the drops in. 8. To make sure your ear soaks up the medicine, do one of these things: ??? Lie down for 10 minutes. The ear with the medicine in it should face up. This will cause the drops to stay in the ear canal and fill the canal. ??? Put a cotton ball in your ear. Do not push it deeper into your ear. Take out the cotton ball when the drops have been soaked up or after 15?30 minutes have passed. 9. If you need to put drops in your other ear, repeat the same steps. Your doctor will tell you if you should put drops in both ears. 10. Wash your hands with soap and water for at least 20 seconds after using ear drops. If you cannot use soap and water, use hand bar finish operator. Follow these instructions at home: ??? Use the ear drops for as long as your doctor tells you to. Do not stop using them even if you start to feel better. ??? Always wash your hands for at least 20 seconds before and after handling the ear drops. ??? Keep the ear drops at room temperature. ??? Do not wash out your ears unless told to by your doctor. Contact a doctor if: ??? Your condition gets worse. ??? Your pain or itching gets worse. ??? Unusual fluid is coming from your ear, especially if the fluid smells bad. ??? You have new trouble hearing. ??? You get a rash around your ear. ??? You have used the ear drops for the amount of time told by your doctor, but you do not feel better. Get help right away if: ??? You feel like the room is spinning and you feel like you might vomit. This condition is called vertigo. ??? The outside of your ear becomes red or swollen. ??? You have a very bad headache with or without a stiff neck. This information is not intended to replace advice given to you by your health care provider. Make sure you discuss any questions you have with your health care provider. Document Revised: 01/10/2023 Document Reviewed: 12/19/2022 [employer] Patient Education ? 2023 [employer] [facility] 12-02-2024 Note Patient Education Neurology Dizziness Dizziness is a common problem. It makes you feel unsteady or light-headed. You may feel like you are about to pass out (faint). Dizziness can lead to getting hurt if you stumble or fall. Dizziness can be caused by many things, including: ??? Medicines. ??? Not having enough water in your body (dehydration). ??? Illness. Follow these instructions at home: Eating and drinking ??? Drink enough fluid to keep your pee (urine) pale yellow. This helps to keep you from getting dehydrated. Try to drink more clear fluids, such as water. ??? Do not drink alcohol. ??? Limit how much caffeine you drink or eat, if your doctor tells you to do that. ??? Limit how much salt (sodium) you drink or eat, if your doctor tells you to do that. Activity ??? Avoid making quick movements. ? Stand up slowly from sitting in a chair, and steady yourself until you feel okay. ? In the morning, first sit up on the side of the bed. When you feel okay, stand up slowly while you hold onto something. Do this until you know that your balance is okay. ??? If you need to panel edge painter one place for a long time, move your legs often. Tighten and relax the muscles in your legs while you are standing. ??? Do not drive or use machinery if you feel dizzy. ??? Avoid bending down if you feel dizzy. Place items in your home so you can reach them easily without leaning over. Lifestyle ??? Do not smoke or use any products that contain nicotine or tobacco. If you need help quitting, ask your doctor. ??? Try to lower your stress level. You can do this by using methods such as yoga or meditation. Talk with your doctor if you need help. General instructions ??? Watch your dizziness for any changes. ??? Take hmvu-lrd-yqloaqj and prescription medicines only as told by your doctor. Talk with your doctor if you think that you are dizzy because of a medicine that you are taking. ??? Tell a friend or a family member that you are feeling dizzy. If he or she notices any changes in your behavior, have this person call your doctor. ??? Keep all follow-up visits. Contact a doctor if: ??? Your dizziness does not go away. ??? Your dizziness or light-headedness gets worse. ??? You feel like you may vomit (are nauseous). ??? You have trouble hearing. ??? You have new symptoms. ??? You are unsteady on your feet. ??? You feel like the room is spinning. ??? You have neck pain or a stiff neck. ??? You have a fever. Get help right away if: ??? You vomit or have watery poop (diarrhea), and you cannot eat or drink anything. ??? You have trouble: ? Talking. ? Walking. ? Swallowing. ? Using your arms, hands, or legs. ??? You feel generally weak. ??? You are not thinking clearly, or you have trouble forming sentences. A friend or family member may notice this. ??? You have: ? Chest pain. ? Pain in your belly (abdomen). ? Shortness of breath. ? Sweating. ??? Your vision changes. ??? You are bleeding. ??? You have a very bad headache. These symptoms may be an emergency. Get help right away. Call your local emergency services (911 in the [place] ??? Do not wait to see if the symptoms will go away. ??? Do not drive yourself to the hospital. Summary ??? Dizziness makes you feel unsteady or light-headed. You may feel like you are about to pass out (faint). ??? Drink enough fluid to keep your pee (urine) pale yellow. Do not drink alcohol. ??? Avoid making quick movements if you feel dizzy. ??? Watch your dizziness for any changes. This information is not intended to replace advice given to you by your health care provider. Make sure you discuss any questions you have with your health care provider. Document Revised: 07/09/2021 Document Reviewed: 07/12/2021 [employer] Patient Education ? 2023 [employer] [facility] 12-02-2024 Evaluation + Plan note Diagnostic Tests PendingCBC w/ Auto Diff 12/02/24Comprehensive Metabolic Panel 12/02/24TSH With T4fr Reflex 12/02/24C-Reactive Protein 12/02/24 Future Scheduled TestsCT Head or Brain w/o Contrast 12/02/24 [facility] 11-26-2024 Note Patient Education Neurology Dizziness Dizziness is a common problem. It makes you feel unsteady or light-headed. You may feel like you are about to pass out (faint). Dizziness can lead to getting hurt if you stumble or fall. Dizziness can be caused by many things, including: ??? Medicines. ??? Not having enough water in your body (dehydration). ??? Illness. Follow these instructions at home: Eating and drinking ??? Drink enough fluid to keep your pee (urine) pale yellow. This helps to keep you from getting dehydrated. Try to drink more clear fluids, such as water. ??? Do not drink alcohol. ??? Limit how much caffeine you drink or eat, if your doctor tells you to do that. ??? Limit how much salt (sodium) you drink or eat, if your doctor tells you to do that. Activity ??? Avoid making quick movements. ? Stand up slowly from sitting in a chair, and steady yourself until you feel okay. ? In the morning, first sit up on the side of the bed. When you feel okay, stand up slowly while you hold onto something. Do this until you know that your balance is okay. ??? If you need to panel edge painter one place for a long time, move your legs often. Tighten and relax the muscles in your legs while you are standing. ??? Do not drive or use machinery if you feel dizzy. ??? Avoid bending down if you feel dizzy. Place items in your home so you can reach them easily without leaning over. Lifestyle ??? Do not smoke or use any products that contain nicotine or tobacco. If you need help quitting, ask your doctor. ??? Try to lower your stress level. You can do this by using methods such as yoga or meditation. Talk with your doctor if you need help. General instructions ??? Watch your dizziness for any changes. ??? Take pccw-vqi-ktdoyua and prescription medicines only as told by your doctor. Talk with your doctor if you think that you are dizzy because of a medicine that you are taking. ??? Tell a friend or a family member that you are feeling dizzy. If he or she notices any changes in your behavior, have this person call your doctor. ??? Keep all follow-up visits. Contact a doctor if: ??? Your dizziness does not go away. ??? Your dizziness or light-headedness gets worse. ??? You feel like you may vomit (are nauseous). ??? You have trouble hearing. ??? You have new symptoms. ??? You are unsteady on your feet. ??? You feel like the room is spinning. ??? You have neck pain or a stiff neck. ??? You have a fever. Get help right away if: ??? You vomit or have watery poop (diarrhea), and you cannot eat or drink anything. ??? You have trouble: ? Talking. ? Walking. ? Swallowing. ? Using your arms, hands, or legs. ??? You feel generally weak. ??? You are not thinking clearly, or you have trouble forming sentences. A friend or family member may notice this. ??? You have: ? Chest pain. ? Pain in your belly (abdomen). ? Shortness of breath. ? Sweating. ??? Your vision changes. ??? You are bleeding. ??? You have a very bad headache. These symptoms may be an emergency. Get help right away. Call your local emergency services (911 in the [place] ??? Do not wait to see if the symptoms will go away. ??? Do not drive yourself to the hospital. Summary ??? Dizziness makes you feel unsteady or light-headed. You may feel like you are about to pass out (faint). ??? Drink enough fluid to keep your pee (urine) pale yellow. Do not drink alcohol. ??? Avoid making quick movements if you feel dizzy. ??? Watch your dizziness for any changes. This information is not intended to replace advice given to you by your health care provider. Make sure you discuss any questions you have with your health care provider. Document Revised: 07/09/2021 Document Reviewed: 07/12/2021 [employer] Patient Education ? 2023 [employer] [facility] 11-18-2024 Note Patient Education Caregiving Antibiotic Medicine, Adult Antibiotic medicines treat infections caused by a type of germ called bacteria. These medicines do not work for germs called viruses. Antibiotics work by killing the bacteria that make you sick. Take antibiotic medicines safely and only when needed. When do I need to take antibiotics? You may need antibiotics for: ??? A urinary tract infection (UTI). ??? Strep throat. ??? A sinus infection caused by bacteria. ??? Meningitis. ??? A bad lung infection. You may start your medicines while your doctor waits for your results on some tests. When your results come back, your doctor may change or stop your medicine based on your test results. When are antibiotics not needed? You do not need these medicines for most common illnesses, such as: ??? A cold. ??? The flu (influenza). ??? A sore throat. ??? Mucus being an odd color. ??? Bronchitis. Sometimes, antibiotics are not needed for an infection caused by bacteria. They may clear up on their own. Do not take these medicines when they are not needed. How long should I take my antibiotic? You need to take all your medicine. Take your antibiotics as told by your doctor. Do not stop taking them even if you start to feel better. If you stop taking them too soon: ??? You may feel sick again. ??? Your infection may get harder to treat. Antibiotics need different amounts of time to work. The length of time may vary from a few days to a few weeks. What if I miss a dose? Try not to miss a dose. If you miss a dose, call your doctor or pharmacist. Sometimes, it is okay to take the missed dose as soon as you can. Do not take double or extra doses. What are the risks of taking antibiotics? Antibiotics can cause: ??? Allergic attacks. ??? A feeling like you may vomit (nausea). ??? Yeast infections. ??? Liver problems. These medicines can cause an infection called C. diff. This causes watery poop (diarrhea). This happens when antibiotics kill good germs in your gut. This lets C. diff grow. Tell your doctor right away if: ??? You get watery poop while taking your antibiotic. ??? You get watery poop after you stop your antibiotic. C. diff can happen weeks after you stop your medicine. You also have a risk of getting an infection in the future that antibiotics cannot treat (antibiotic-resistant infection). These infections can get very bad. This is because they can be hard, or sometimes impossible, to treat. Do antibiotics affect control? control pills may not work. If you take control pills: ??? Keep taking them as normal. ??? Use a second form of control, such as a condom. Do this for as long as told by your doctor. What else should I know about taking antibiotics? Take these medicines exactly as told. ??? Take the right amount of medicine at the same time each day. ??? Ask your doctor: ? How long to wait between doses. ? If you should take your medicine with food or water. ? If you should stay away from some foods, drinks, or medicines. Some antibiotics may make other medicines not work as good, such as control pills. ? What side effects you should watch for. ??? Use only the medicines that your doctor said to use. Do not use medicines that were given to someone else. ??? Drink a large glass of water when you take your medicine unless you are told not to. Drink enough fluid to keep your pee (urine) pale yellow. ??? Ask your pharmacist for a tool to measure your medicine. This may be a syringe, cup, or spoon. ??? Ask your doctor how to safely get rid of extra medicine. Follow these instructions at home: ??? Take your antibiotics as told by your doctor. Do not stop taking them even if you start to feel better. ??? Return to your normal activities when your doctor says that it is safe. Contact a doctor if: ??? You feel worse. ??? You have one of these after you start your medicine: ? New joint pain. ? New muscle aches. ??? You have side effects from your medicine, such as: ? Stomach pain. ? Watery poop. ? Feeling like you may vomit. ? White patches in your mouth or throat. Get help right away if: ??? You have a very bad allergic attack. If this happens, stop taking your medicine right away. Signs may include: ? Hives. These are raised, itchy, red bumps on your skin. ? Skin rash. ? Trouble breathing. ? Making high-pitched whistling sounds when you breathe, most often when you breathe out (wheeze). ? Swelling on your body. ? Feeling dizzy. ? Vomiting. ??? You have symptoms of liver problems. You may have: ? Dark pee, or pee that is the color of blood. ? Yellow skin. ? Easy bruising or bleeding. ??? You have very bad watery poop. ??? You have cramps in your belly. ??? You have a very bad headache. These symptoms may be an emergency. Get help right away. Call 911. (more content not included)... [facility] 05-06-2024 Note Patient Education Infectious Disease Rash, Adult A rash is a breakout of spots or blotches on the skin. It can change the way your skin looks and feels. Many things can cause a rash. The goal of treatment is to stop the itching and keep the rash from spreading. Follow these instructions at home: Medicine Take or apply ohze-hhu-nrqesvu and prescription medicines only as told by your doctor. These may include medicines to treat: ? Red or swollen skin. ? Itching. ? An allergy. ? Pain. ? An infection. Skin care ? Put a cool, wet cloth on the rash. ? Do not scratch or rub your skin. ? Try not to cover the rash. Keep it exposed to air as often as you can. Managing itching and discomfort ? Avoid hot showers or baths. These can make itching worse. A cold shower may help. ? Try taking a bath with: ? Epsom salts. You can get these at your pharmacy or grocery store. Follow the instructions on the package. ? Baking soda. Pour a small amount into the bath as told by your doctor. ? Colloidal oatmeal. You can get this at your pharmacy or grocery store. Follow the instructions on the package. ? Try putting baking soda paste on your skin. Stir water into baking soda until it gets like a paste. ? Try putting on a lotion to help with itching (calamine lotion). ? Keep cool. Stay out of the sun. Sweating and being hot can make itching worse. General instructions ? Rest as needed. ? Drink enough fluid to keep your pee (urine) pale yellow. ? Wear loose-fitting clothes. ? Avoid scented soaps, detergents, and perfumes. Use gentle soaps, detergents, perfumes, and cosmetics. ? Avoid the things that cause your rash. Keep a journal to help keep track of what causes your rash. Write down: ? What you eat. ? What cosmetics you use. ? What you drink. ? What you wear. This includes jewelry. Contact a doctor if: ? You sweat a lot at night. ? You pee (urinate) more or less than normal. ? Your pee is a darker color than normal. ? Your eyes are sensitive to light. ? Your skin or the white parts of your eyes turn yellow. ? Your skin tingles or is numb. ? You get painful blisters in your nose or mouth. ? Your rash does not go away after a few days, or it gets worse. ? You are more tired than normal. ? You are more thirsty than normal. ? You have new or worse symptoms. These may include: ? Pain in your belly. ? A fever. ? Watery poop (diarrhea). ? Vomiting. ? Weakness. ? Weight loss. Get help right away if: ? You start to feel mixed up (confused). ? You have a very bad headache or a stiff neck. ? You have very bad joint pain or stiffness. ? You get very sleepy or not responsive. ? You have a seizure. This information is not intended to replace advice given to you by your health care provider. Make sure you discuss any questions you have with your health care provider. Document Revised: 05/26/2023 Document Reviewed: 05/26/2023 [employer] Patient Education ? 2023 [employer] [facility] Evaluation + Plan note Future Appointments Appointment Date:06/03/2024 10:00:00 AM Scheduled Provider:MICHELE CHURCH CNP Location:[facility] Appointment Type: Open Diagnostic Tests PendingPAP w/ HPV and Genotype rflx 05/20/24 [facility] Evaluation + Plan note Future Appointments Appointment Date:05/20/2024 10:00:00 AM Scheduled Provider:Shae Lockhart Location:[facility] Appointment Type:FM Open Appointment Date:06/03/2024 10:00:00 AM Scheduled Provider:MICHELE CHURCH CNP Location:[facility] Appointment Type:FM Open [facility] Hospital course Narrative No data available for this section [facility] Hospital Discharge instructions No data available for this section [facility] Progress note No data available for this section [facility] Summary Purpose Family History No Family History Records Found No data available for this section No Family History Records FoundNo Family History Records Found No data available for this section No data available for this section No Family History Records FoundNo Family History Records FoundNo Family History Records FoundNo Family History Records FoundNo Family History Records Found No data available for this section No Family History Records FoundNo Family History Records FoundNo Family History Records FoundNo Family History Records FoundNo Family History Records Found Advance Directives No Advanced Directives Records FoundNo Advanced Directives Records FoundNo Advanced Directives Records FoundNo Advanced Directives Records FoundNo Advanced Directives Records FoundNo Advanced Directives Records FoundNo Advanced Directives Records FoundNo Advanced Directives Records FoundNo Advanced Directives Records FoundNo Advanced Directives Records FoundNo Advanced Directives Records FoundNo Advanced Directives Records FoundNo Advanced Directives Records Found Additional Source Comments INFORMATION SOURCE (unrecogn ized section and content) DATE CREATED AUTHOR 05/08/2024 [facility] DATE CREATED AUTHOR AUTHOR'S ORGANIZ ATION 05/22/2024 [facility] DATE CREATED AUTHOR AUTHOR'S ORGANIZ ATION 06/05/2024 [facility] DATE CREATED AUTHOR AUTHOR'S ORGANIZ ATION 12/03/2024 [facility] DATE CREATED AUTHOR AUTHOR'S ORGANIZ ATION 12/05/2024 [facility] DATE CREATED AUTHOR AUTHOR'S ORGANIZ ATION 03/19/2025 [facility] DATE CREATED AUTHOR AUTHOR'S ORGANIZ ATION 03/20/2025 [facility] DATE CREATED AUTHOR AUTHOR'S ORGANIZ ATION 03/25/2025 [facility] Patient Care team informatio n (unrecognized section and content) Personnel Name: MICHELE CHURCH CNP Address: Address: [address] [place] [address] Personnel Name: MICHELE CHURCH CNP Address: Address: [address] [place] [address] Personnel Name: MICHELE CHURCH CNP Address: [address] [place] [address] Telecom: Personnel Name: MICHELE CHURCH CNP Address: [address] [place] [address] [employer]: FOR RECORDS PERTAINING TO PATIENTS WHO ARE OR HAVE BEEN ENROLLED IN A CHEMICAL DEPENDENCY/SUBSTANCEABUSE PROGRAM, SOME INFORMATION MAY BE OMITTED. This clinical summary was aggregated from multiple sources. Caution should be exercised in using it in the provision of clinical care. This summary normalizes information from multiple sources, and as a consequence, information in this document may materially change the coding, format and clinical context of patient data. In addition, data may be omitted in some cases. CLINICAL DECISIONS SHOULD BE BASED ON THE PRIMARY CLINICAL RECORDS. [facility] [employer] [facility]. provides no warranty or guarantee of the accuracy or completeness of information in this document.
== END 2025-05-28 13:15 | disposition home or self-care (01) ==
PROVIDERS: PCP Nurse Practitioner; Visit Provider Nurse Practitioner
DX: Z12.31 Encounter for screening mammogram for malignant neoplasm of breast (principal)
CPT/HCPCS: 77063; 77067